=== PATIENT | female | born 2000 | race Two or more races ===

== ENCOUNTER 2022-09-28 23:37 | Inpatient (IN) ==
[2022-09-29] MEDS ORDERED: MAG SULFATE 4GM BOLUS FROM BAG IV ONE (00:11)
[2022-09-29] MEDS ORDERED: LIDOCAINE 1% LOCAL 20 ML VIAL INFIL PRN (00:11)
[2022-09-29] MEDS ORDERED: OXYTOCIN 30 UNITS/500 ML BAG IV PRN ×2 (00:11→00:58)
[2022-09-29] MEDS ORDERED: NIFEdipine 10 MG CAP PO STA (00:15)
[2022-09-29] MEDS ORDERED: NIFEdipine 10 MG CAP ONE (00:16)
--- NOTE | 2022-09-29 00:33 | History & Physical Report ---
Date of Service September 29, 2022 Assessment & Plan (1) Pre-eclampsia affecting childbirth: Plan: Initial blood pressures are elevated in the severe range and initial dose of nifedipine p.o. was given with some reasonable response Labs are drawn IV is started but in combination with her symptoms elevated blood pressure I think she likely will meet the criteria for preeclampsia with severe features. Worrisome with a headache of course but also elevated protein. She is just short of 36 weeks at 35 weeks and 5 days she has not had her group B strep drawn yet. We will await labs initiate magnesium sulfate and then will determine position as well with ultrasound which is found to be Vertex We addressed an issue to that the patient prefers female providers it is 1 AM at this time and I am on-call and a male provider I do not have a female provider available for her at this time. The patient understands this I will do everything I can to be respectful of her preferences she does understand that she has a serious problem preeclampsia with severe features and needs magnesium we also discussed betamethasone as well as she is 35 weeks and 6 days. I think this is reasonable as the induction may take some time and there may be some benefit of the steroid. I have asked nursing to check her cervix while this is not ideal this is the best option I have for her without me checking. Nursing is willing to do this. Preference would be to initiate oxytocin at this time if her cervix is closed she would benefit from a cervical Leger however she will not let me place this at this time. Did discuss benefits of this however again trying to be respectful of her cultural wishes. Nursing assessment is that it is likely closed although it is a difficult exam on review of her previous visits in the office it sounds like pelvic exams are challenging for the patient. I reviewed the process of preeclampsia with severe features the importance of controlling blood pressure the importance of magnesium to reduce the chance of seizures and also the importance of betamethasone penicillin be started on spec as we do not have a GBS status a GBS swab will be done but the results will not be likely available until after delivery History of Present Illness Primary Care Provider: [facility] JONI Calculator Estimated Delivery Date Method Current WG Current Estimate 10/28/22 LMP (Certain) 34w 2d Other Estimates 11/01/22 Ultrasound #1 33w 5d LMP: 01/21/22 : 1 Full term: 0 Premature: 0 Total Number of Induced Abortions: 0 Total Number of Spontaneous Abortions: 0 Ectopics: 0 Multiple births: 0 Number of Living Children: 0 and Delivery Plans Covid + 07/06/22, sx's began 07/05/22 Patient has not checked her blood pressure at home as she was worried it was elevated that she had some discomfort behind her up epigastric region. She also has a headache on the left side which seems to have gotten worse she has no visual changes the patient checked her blood pressure at home on the device and it was elevated contacted me and then came to the hospital at on my advice initial blood pressure readings were elevated and I did confirm the same symptoms her urine protein is elevated as well Allergies Allergy/AdvReac Type Severity Reaction Status Date / Time No Known Allergies Allergy Verified 09/18/22 15:02 Home Medications Medication Instructions Recorded Confirmed Type prenat.vits,reji,klt-ipnk-xcnee 1 tab PO DAILY 09/29/22 09/29/22 History Patient History Medical History (Updated 09/29/22 @ 08:54 by Shahla Ellison MD, FACOG) Cervical radicular pain Cervicalgia History of COVID-19 07/06/2022 Myofascial pain No significant past medical history Right hip pain Right shoulder pain Family History Mother Colorectal cancer, Onset Age: 33 Denies family history of Ovarian cancer Breast cancer Social History (Updated 09/12/22 @ 13:32 by Grace Magallon RN) Smoking Status: Never smoker Second Hand Exposure: No; Do You Dip or Chew Tobacco: No; Tobacco Cessation Education Requested by Patient: No Hx Alcohol Use: No Hx Substance Use: No Preferred Language: Yi Communication Ability: Effective Visual Impairment: No Limitations Blow Molder Required: No Beliefs That Will Affect Care: Evangelical Evangelical Beliefs: no male for per mulu care reasons marital status: marital status details: kassandra (24) [phone] Current Living Situation: Spouse current occupational status: student Other Information That Helps Us Care for You: No Feels Safe at Home: Yes Safety Concerns: Feels Safe At This Time Assistive Devices: Glasses Review of Systems as per Subjective / HPI Physical Exam Constitutional: WD/WN, vitals as above well developed and well nourished Respiratory: normal respiratory effort, lungs clear to auscultation normal respiratory effort Cardiovascular: RRR, no murmur, no edema Gastrointestinal (Abdomen): normal bowel sounds, soft, nontender, no hepatosplenomegaly Results & Data ([facility]) Vital Signs (Past 12 Hours) Vital Signs Pulse BP 09/29/22 00:16 93 H 172/101 H 09/29/22 00:11 89 174/104 H 09/29/22 00:06 85 173/105 H 09/29/22 00:00 86 176/107 H 09/28/22 23:47 80 176/101 H 09/28/22 23:45 86 191/111 H Coding Level of Care Code None Diagnoses Pre-eclampsia affecting childbirth O14.94
[2022-09-29] MEDS ORDERED: BETAMETH SOD PHOS/ACETATE IA 6 MG/ML IM STA (00:51)
[2022-09-29 00:52] LABS: Basophils # (auto) 0.03 K/uL (0-0.2); Basophils % (auto) 0.3 %; Eosinophils % (auto) 0.9 %; Hematocrit (blood only) 32.7 % (37.0-47.0); Immature Granulocytes # (auto) 0.05 K/uL (0.01-0.20); Immature Granulocytes % (auto) 0.5 %; Lymphocytes # (auto) 3.17 K/uL (1.2-3.4); Lymphocytes % (auto) 29.9 %; Mean Corpuscular Hemoglobin 29.8 pg (25.0-34.0); Mean Corpuscular Hgb Conc 33.6 g/dL (32.0-36.0); Mean Corpuscular Volume 88.6 fL (80.0-100.0); Monocytes # (auto) 0.95 K/uL (0.11-0.59); Neutrophils # (auto) 6.31 K/uL (1.40-6.50); Neutrophils % (auto) 59.4 %; Platelet Count 385 K/uL (130-400); RDW Coefficient of Variation 13.1 % (11.5-14.5); RDW Standard Deviation 42.2 fL (36.4-46.3); Red Blood Count 3.69 M/uL (4.20-5.40); White Blood Count 10.61 K/ul (4.8-10.8)
[2022-09-29] MEDS ORDERED: PENICILLIN G POTASSIUM 6 MU in DEXTROSE 5% 250 ML IV ONE (01:00)
[2022-09-29] MEDS: MAGNESIUM SULFATE / WTR 40 GM/1,000 ML BAG IV SCH ×2 (01:00→18:30)
[2022-09-29] MEDS: LACTATED RINGER'S 1,000 ML IV PRN ×2 (01:00→15:19)
[2022-09-29 01:03] LABS: Creatinine Clr Calc Pharmacy 174.6 ml/min; Est GFR (African American) 149.5 ml/min
[2022-09-29 01:49] LABS: Appearance Urine Clear (Clear); Bacteria Urine Automated Negative (Negative); Bilirubin Urine Negative (Negative); Blood Urine Trace (Negative); Color Urine Yellow; Epithelial Cell Urine Auto >30 /lpf (0-5); Glucose Urine UA Negative (Negative); Ketones Urine Negative (Negative); Leukocyte Esterase Urine Negative (Negative); Nitrite Urine Negative (Negative); Protein Urine 3+ (Negative); RBC Urine Automated 0-4 /hpf (0-4); Specific Gravity Urine 1.017 (1.000-1.030); Urobilinogen Urine Negative (Negative); pH Urine 6.5 (4.5-7.5)
[2022-09-29 02:30] LABS: Creatinine Urine Random 51.9 mg/dl
[2022-09-29 02:31] LABS: Total Protein Urine Random 217.8 mg/dl (0-11.9)
[2022-09-29 02:32] LABS: Protein Creatinine Ratio Urine 4.2 (0-0.2)
[2022-09-29] MEDS: PENICILLIN G POTASSIUM 3 MU in DEXTROSE 5% 100 ML IV PRN ×5 (05:45→22:40)
--- NOTE | 2022-09-29 08:55 | Labor Progress Brief Note ---
Date of Service September 29, 2022 Subjective pt feels ok, no brown or visual change. no concerns. explained procedure for alamo and desires to try. discussed use of epidural for labor pain/induction Assessment & Plan (1) Pre-eclampsia affecting childbirth: (2) Non-dilated cervix in term : Plan alamo placed to aid in cx ripening. pt did well. nst reactive. c/w pit. Admission and Anticipated Discharge Date Admission Date: September 29, 2022 Physical Exam Constitutional: WD/WN, vitals as above Genitourinary: Manual OB Exam: + cervical dilation (visually closed) and + cervical effacement (visually long) OB Exam Monitor Tracing: + external FHT monitor used, + external uterine monitor used (q3), + category I and + normal FHT variability PROCEDURE: sse cx visualized, grasped on ant lip with ring forcep, alamo through os and balloon inflated with 40cc sterile water. Spec removed, alamo taped to leg. pt gurpreet well. Results & Data ([facility]) Vital Signs (Past 12 Hours) Vital Signs Temp Pulse Resp BP 09/29/22 00:25 98.6 F 18 09/29/22 08:27 100 H 135/80 09/29/22 08:13 93 H 131/87 09/29/22 08:00 18 09/29/22 08:00 97.7 F 18 09/29/22 07:58 99 H 134/85 09/29/22 07:30 20 09/29/22 07:30 20 09/29/22 07:42 98 H 130/94 09/29/22 07:27 93 H 136/85 09/29/22 07:00 18 09/29/22 07:00 18 09/29/22 07:12 98 H 128/78 09/29/22 06:59 93 H 131/77 09/29/22 06:44 94 H 119/75 09/29/22 06:00 18 09/29/22 06:00 18 09/29/22 06:28 94 H 126/76 09/29/22 05:00 18 09/29/22 05:00 18 09/29/22 06:12 96 H 132/76 09/29/22 05:57 92 H 126/73 09/29/22 05:44 97 H 132/87 09/29/22 05:27 102 H 121/72 09/29/22 05:12 96 H 129/79 09/29/22 04:58 86 126/77 09/29/22 04:42 85 124/80 09/29/22 04:27 85 128/75 09/29/22 04:12 99 H 115/68 09/29/22 04:00 18 09/29/22 04:00 98.6 F 18 09/29/22 03:57 98 H 113/65 09/29/22 03:00 18 09/29/22 03:00 18 09/29/22 02:00 18 09/29/22 02:00 18 09/29/22 03:27 104 H 132/77 09/29/22 03:12 93 H 126/77 09/29/22 02:58 101 H 138/88 09/29/22 01:00 20 09/29/22 01:00 20 09/29/22 02:12 93 H 126/75 09/29/22 01:57 102 H 137/68 09/29/22 01:42 96 H 129/75 09/29/22 01:27 111 H 142/87 H 09/29/22 01:12 103 H 140/87 09/29/22 01:01 104 H 151/91 H 09/29/22 00:31 86 143/87 H 09/29/22 00:28 83 145/83 H 09/29/22 00:24 88 158/90 H 09/29/22 00:16 93 H 172/101 H 09/29/22 00:11 89 174/104 H 09/29/22 00:06 85 173/105 H 09/29/22 00:00 86 176/107 H 09/28/22 23:47 80 176/101 H 09/28/22 23:45 86 191/111 H Coding Level of Care Code None Diagnoses Pre-eclampsia affecting childbirth O14.94 Non-dilated cervix in term O34.40 CPT Codes Misx Procedure Codes - 21346 Placement of cervical dilator: 98197 Placement of cervical dilator ([id number]) PHYSICIAN LIAISON Miscellaneous Codes Misx Procedure Codes 82061 Placement of cervical dilator
[2022-09-29] MEDS ORDERED: ACETAMINOPHEN 325 MG TAB PO STA (09:30)
[2022-09-29 10:04] LABS: Basophils # (auto) 0.02 K/uL (0-0.2); Basophils % (auto) 0.2 %; Hematocrit (blood only) 37.3 % (37.0-47.0); Hemoglobin 12.9 g/dl (12.0-16.0); Immature Granulocytes # (auto) 0.11 K/uL (0.01-0.20); Immature Granulocytes % (auto) 0.9 %; Lymphocytes # (auto) 1.61 K/uL (1.2-3.4); Lymphocytes % (auto) 13.8 %; Mean Corpuscular Hemoglobin 29.7 pg (25.0-34.0); Mean Corpuscular Hgb Conc 34.6 g/dL (32.0-36.0); Mean Corpuscular Volume 85.9 fL (80.0-100.0); Monocytes # (auto) 0.18 K/uL (0.11-0.59); Monocytes % (auto) 1.5 %; Neutrophils # (auto) 9.71 K/uL (1.40-6.50); Neutrophils % (auto) 83.6 %; Platelet Count 466 K/uL (130-400); RDW Standard Deviation 40.6 fL (36.4-46.3); Red Blood Count 4.34 M/uL (4.20-5.40); White Blood Count 11.63 K/ul (4.8-10.8)
[2022-09-29 10:16] LABS: Alanine Aminotransferase 10 U/L (7-52); Albumin Globulin Ratio 1.1 (0.9-2); Albumin Level 3.6 gm/dl (3.4-5.0); Alkaline Phosphatase 134 U/L (34-104); Anion Gap 8 (3-11); Aspartate Aminotransferase 16 U/L (13-39); BUN Creatinine Ratio 18.9 (10-20); Bilirubin,Total 0.4 mg/dl (0.2-1.0); Blood Urea Nitrogen 10 mg/dl (6-23); Calcium 8.3 mg/dl (8.5-10.1); Carbon Dioxide 22 mmol/L (21-32); Chloride 103 mmol/L (98-107); Est GFR (African American) > 150.0 ml/min; Est GFR (Non-African American) 132.9 ml/min; Globulin 3.4 gm/dl (2.5-4.0); Glucose 129 mg/dl (70-99(Fasting)); Potassium 4.2 mmol/L (3.5-5.1); Sodium 133 mmol/L (136-145)
[2022-09-29 10:35] LABS: INR 0.9 (0.9-1.1); Partial Thromboplastin Ratio 0.9; Partial Thromboplastin Time 24.1 Seconds (21.0-31.0); Prothrombin Time 9.9 Seconds (9.0-12.0)
[2022-09-29] MEDS ORDERED: SODIUM CHLORIDE 0.9% INJ 10 ML VIAL ONE ×2 (12:50→22:50)
[2022-09-29] MEDS ORDERED: fentaNYL citrate 100 MCG/2 ML VIAL ONE ×2 (12:50→22:50)
[2022-09-29] MEDS ORDERED: ePHEDrine sulfate 50 MG/ML AMP ONE ×2 (12:50→22:50)
[2022-09-29] MEDS ORDERED: LIDOCAINE 2%/EPINEPHRINE 1:200,000 20 ML SDV ONE ×2 (12:51→22:50)
[2022-09-29] MEDS ORDERED: BUPIVACAINE 0.25% 30 ML VIAL ONE ×2 (12:51→22:50)
[2022-09-29] MEDS ORDERED: fentaNYL 2MCG/ML ROPIVACAINE 1.25MG/ML 100 ML BAG EPI ONE ×2 (12:51→22:51)
[2022-09-29] MEDS ORDERED: diphenhydrAMINE 50 MG/ML VIAL IV PRN (13:26)
[2022-09-29] MEDS ORDERED: NALOXONE HCL 1 MG in SODIUM CHLORIDE 0.9% 1000ML 1,000 ML IV PRN (13:26)
[2022-09-29] MEDS ORDERED: ONDANSETRON INJ 2 MG/ML 2 ML VIAL IV PRN (13:26)
[2022-09-29] MEDS ORDERED: NALBUPHINE HCL INJ 10 MG/ML AMP IV PRN (13:26)
[2022-09-29] MEDS ORDERED: NALOXONE HCL 0.4 MG/1 ML VIAL/CARP IV PRN (13:26)
[2022-09-29] MEDS ORDERED: ePHEDrine sulfate 50 MG/ML AMP IV PRN (13:26)
--- NOTE | 2022-09-29 13:26 | Anesthesiology Consultation ---
Date of Service September 29, 2022 Assessment & Plan ASA ASA2 Proposed Anesthesia Anesthesia Type: Labor Epidural Risk / Benefits Reviewed With: PT / POA / Parent / Guardian, Accepts Plan and Informed Consent Obtained History Height/Weight Height: 5 ft 5 in Weight: 99.337 kg Allergies Allergy/AdvReac Type Severity Reaction Status Date / Time No Known Allergies Allergy Verified 09/18/22 15:02 Medications Home Medications Medication Instructions Recorded Confirmed Last Taken prenat.vits,reji,coo-gkxz-arzwe 1 tab PO DAILY 09/29/22 09/29/22 09/28/22 08:00 Active Medications Generic Name Dose Route Start Last Admin Trade Name Freq PRN Reason Stop Dose Admin Lactated Ringer's 1,000 mls @ 125 mls/hr 09/29/22 00:11 09/29/22 01:00 Lr IV 10/01/22 00:10 75 mls/hr .Q8H PRN Administration L&D Protocol Protocol Magnesium Sulfate 40 gm in 1,000 mls @ 50 mls/hr 09/29/22 00:15 09/29/22 07:11 Magnesium Sulfate / Wtr IV 10/29/22 00:14 50 mls/hr .Q20H SUPRIYA Infusion Penicillin G Potassium 3 mu/ 106 mls @ 100 mls/hr 09/29/22 03:52 09/29/22 10:49 Dextrose IV 10/09/22 03:51 Infused Q4H PRN Infusion GBS(+) Until Delivery Oxytocin 30 units in 500 mls @ 11 mls/hr 09/29/22 00:58 09/29/22 12:00 Pitocin IV 10/01/22 00:57 0.66 units/hr .Q24H PRN 11 mls/hr Labor Induction/Augmentation Titration Protocol 0.66 UNITS/HR Past Medical History Medical History Cervical radicular pain Cervicalgia History of COVID-19 07/06/2022 Myofascial pain No significant past medical history Right hip pain Right shoulder pain Exercise / Class Metabolic Activity II 4-5 Yardwork/Stairs/Walk up hill Past Family History Family History Mother Colorectal cancer, Onset Age: 33 Denies family history of Ovarian cancer Breast cancer Past Anesthesia History No Hx of Anesthesia Complications and No Family Hx of Anesthesia Complications History of PONV No Hx of PONV and No Hx of Motion Sickness Social History Smoking Status: Never smoker Do You Dip or Chew Tobacco: No Hx Alcohol Use: No Hx Substance Use: No substance use type: does not use Review of Systems denies fever/cough/ colds/ chest pain/ SOB/ TACHO denies TACHO Physical Exam Vital Signs Last Vital Signs Temp 36.5 C 09/29/22 11:00 Pulse 109 H 09/29/22 13:53 Resp 20 09/29/22 13:00 BP 157/88 H 09/29/22 13:53 Pulse Ox 99 09/29/22 13:51 ENMT Mouth: no TMJ abnormality and no dentition abnormality Thyromental Distance: > or= 3.5 Finger Breadths Mallampati Class: II Neck neck extension not limited Respiratory normal respiratory effort; no respiratory distress Auscultation: lungs clear to auscultation bilaterally Cardiovascular Rate/Rhythm: regular rate and regular rhythm Neurologic moves all extremities Psychiatric Orientation: alert and oriented x 3 Testing Laboratory Results 09/29/22 09:40 09/29/22 09:40 PT 9.9 Seconds (9.0-12.0) 09/29/22 09:40 INR 0.9 (0.9-1.1) 09/29/22 09:40 APTT 24.1 Seconds (21.0-31.0) 09/29/22 09:40 Urine Color Yellow 09/29/22 01:37 Urine Appearance Clear (Clear) 09/29/22 01:37 Urine pH 6.5 (4.5-7.5) 09/29/22 01:37 Ur Specific Emmet 1.017 (1.000-1.030) 09/29/22 01:37 Urine Protein 3+ (Negative) H 09/29/22 01:37 Urine Glucose (UA) Negative (Negative) 09/29/22 01:37 Urine Ketones Negative (Negative) 09/29/22 01:37 Urine Nitrite Negative (Negative) 09/29/22 01:37 Ur Leukocyte Esterase Negative (Negative) 09/29/22 01:37 Urine WBC (Auto) 1-5 /hpf (0-5) 09/29/22 01:37 Urine RBC (Auto) 0-4 /hpf (0-4) 09/29/22 01:37 U Hyaline Cast (Auto) 1-5 /lpf (0-5) 09/29/22 01:37 U Epithel Cells (Auto) >30 /lpf (0-5) H 09/29/22 01:37 Urine Bacteria (Auto) Negative (Negative) 09/29/22 01:37 Blood Type B Positive 09/29/22 00:25 Antibody Screen NEGATIVE 09/29/22 00:25
--- NOTE | 2022-09-29 15:38 | Labor Progress Brief Note ---
Date of Service September 29, 2022 Subjective pt comfortable with epidural Assessment & Plan (1) Pre-eclampsia affecting childbirth: Plan patient alamo ripening balloon out, c/w pit, arom completed. fhts categ 1. pt aware that i am leaving, Dr. Escobar communications director and will be taking over care. no option for female provider and she accepts. Admission and Anticipated Discharge Date Admission Date: September 29, 2022 Physical Exam Constitutional: WD/WN, vitals as above Genitourinary: Manual OB Exam: + cervical dilation (3-4cm), + cervical effacement 50%, + station -2 and + amniotic fluid (AROM) clear OB Exam Monitor Tracing: + external FHT monitor used, + external uterine monitor used (q2-3), + category I and + normal FHT variability alamo balloon deflated and removed. Results & Data ([facility]) Vital Signs (Past 12 Hours) Vital Signs Temp Pulse Resp BP Pulse Ox 09/29/22 15:31 93 H 99 09/29/22 15:28 93 H 142/91 H 09/29/22 15:26 95 H 98 09/29/22 15:21 100 H 98 09/29/22 15:16 98 H 99 09/29/22 15:13 91 H 127/77 09/29/22 15:11 95 H 99 09/29/22 14:30 16 09/29/22 14:30 16 09/29/22 15:06 97 H 99 09/29/22 15:01 97 H 99 09/29/22 15:00 95 H 133/79 09/29/22 14:56 96 H 99 09/29/22 14:51 101 H 99 09/29/22 14:46 101 H 99 09/29/22 14:44 101 H 126/77 09/29/22 14:41 103 H 98 09/29/22 14:36 99 H 99 09/29/22 14:31 101 H 98 09/29/22 14:26 101 H 99 09/29/22 14:24 102 H 129/70 09/29/22 14:21 100 H 99 09/29/22 14:19 101 H 132/66 09/29/22 14:16 101 H 99 09/29/22 14:10 97.7 F 09/29/22 13:30 16 09/29/22 13:30 16 09/29/22 14:14 104 H 129/61 09/29/22 14:11 106 H 99 09/29/22 14:07 101 H 123/61 09/29/22 14:06 103 H 98 09/29/22 14:05 97 H 136/64 09/29/22 14:03 100 H 138/69 09/29/22 14:01 100 H 99 09/29/22 14:02 99 H 135/72 09/29/22 13:56 103 H 98 09/29/22 13:57 107 H 143/78 H 09/29/22 13:55 101 H 137/76 09/29/22 13:53 109 H 157/88 H 09/29/22 13:51 99 09/29/22 13:51 104 H 09/29/22 13:51 102 H 132/78 09/29/22 13:46 106 H 100 09/29/22 13:42 97 H 143/88 H 09/29/22 13:41 99 H 99 09/29/22 13:36 99 H 99 09/29/22 13:34 108 H 92 09/29/22 13:31 95 H 98 09/29/22 13:28 112 H 140/87 09/29/22 13:26 111 H 98 09/29/22 13:21 89 96 09/29/22 13:16 94 H 97 09/29/22 13:12 101 H 137/81 09/29/22 13:11 96 H 96 09/29/22 13:00 20 09/29/22 13:00 20 09/29/22 13:06 91 H 97 09/29/22 13:01 98 H 98 09/29/22 12:57 96 H 126/75 09/29/22 12:43 91 H 143/85 H 09/29/22 12:30 18 09/29/22 12:30 18 09/29/22 12:28 96 H 138/85 09/29/22 12:00 20 09/29/22 12:00 20 09/29/22 12:12 91 H 139/83 09/29/22 11:57 90 135/84 09/29/22 11:30 20 09/29/22 11:30 20 09/29/22 11:42 92 H 134/83 09/29/22 11:27 99 H 135/82 09/29/22 11:00 18 09/29/22 11:00 97.7 F 18 09/29/22 11:12 98 H 135/82 09/29/22 10:30 18 09/29/22 10:30 18 09/29/22 10:57 95 H 132/72 09/29/22 10:42 96 H 126/73 09/29/22 10:28 96 H 138/82 09/29/22 10:24 100 H 144/90 H 09/29/22 09:30 18 09/29/22 09:30 18 09/29/22 10:00 18 09/29/22 10:00 18 09/29/22 09:00 18 09/29/22 09:00 18 09/29/22 08:30 18 09/29/22 08:30 18 09/29/22 09:28 96 H 145/94 H 09/29/22 09:13 99 H 134/86 09/29/22 08:58 100 H 148/89 H 09/29/22 08:27 100 H 135/80 09/29/22 08:13 93 H 131/87 09/29/22 08:00 18 09/29/22 08:00 97.7 F 18 09/29/22 07:58 99 H 134/85 09/29/22 07:30 20 09/29/22 07:30 20 09/29/22 07:42 98 H 130/94 09/29/22 07:27 93 H 136/85 09/29/22 07:00 18 09/29/22 07:00 18 09/29/22 07:12 98 H 128/78 09/29/22 06:59 93 H 131/77 09/29/22 06:44 94 H 119/75 09/29/22 06:00 18 09/29/22 06:00 18 09/29/22 06:28 94 H 126/76 09/29/22 05:00 18 09/29/22 05:00 18 09/29/22 06:12 96 H 132/76 09/29/22 05:57 92 H 126/73 09/29/22 05:44 97 H 132/87 09/29/22 05:27 102 H 121/72 09/29/22 05:12 96 H 129/79 09/29/22 04:58 86 126/77 09/29/22 04:42 85 124/80 09/29/22 04:27 85 128/75 09/29/22 04:12 99 H 115/68 09/29/22 04:00 18 09/29/22 04:00 98.6 F 18 09/29/22 03:57 98 H 113/65 Coding Level of Care Code None Diagnoses Pre-eclampsia affecting childbirth O14.94
[2022-09-29] MEDS: fentaNYL 2MCG/ML ROPIVACAINE 1.25MG/ML 100 ML BAG EPI PRN (19:42)
[2022-09-29] MEDS ORDERED: NURSING L&D Epidural Breakthrough Pain Update ONE (21:29)
--- NOTE | 2022-09-29 23:29 | Communication Note ---
Date of Service: September 29, 2022 pt c/o lower abdominal and back pain. pt is on mag and is at 5cm. previous epidural removed with tip intact. I decided that the epidural should be replaced because the patient hasnt progressed very far. Sterile prep/drape/gloves. L3-l4 identified. 1% lido infiltrated. 18 gauge touey needle advanced to FRAN to air at 7 cm. easy catheter thread to 14 cm. 2% lido with epi 4cc test dose. Negative IV/IT. while taping the epidural pt became nauseous and c/o difficulty breathing and unable to move legs. VSS otherwise stable. after two minutes pt was able to breath again and was moving her legs with ease. Nursing reports that patient had similar incidences throughout the day/night. Pt not reporting any other symptoms. I bolused the patient with 3cc of 0.25% bupivicaine and 100 mcg of fentanyl. VSS and pt reports improvement in pain.
[2022-09-30] MEDS: LACTATED RINGER'S 1,000 ML IV PRN ×2 (00:30→11:26)
[2022-09-30] MEDS ORDERED: BETAMETH SOD PHOS/ACETATE IA 6 MG/ML IM ONE (01:15)
[2022-09-30] MEDS: fentaNYL 2MCG/ML ROPIVACAINE 1.25MG/ML 100 ML BAG EPI PRN (01:45)
[2022-09-30] MEDS ORDERED: ACETAMINOPHEN 325 MG TAB PO PRN (03:29)
[2022-09-30] MEDS ORDERED: DIPHTHERIA/TETANUS/PERTUSSIS 0.5mL SYR/VIAL (Age 7+yrs) IM ONE (03:29)
[2022-09-30] MEDS ORDERED: OXYTOCIN 30 UNITS/500 ML BAG IV PRN (03:29)
[2022-09-30] MEDS ORDERED: HYDROCORTISONE ACETATE 25 MG SUPP PR PRN (03:29)
[2022-09-30] MEDS ORDERED: BENZOCAINE 20% AER SPR 82.5 GM CAN EXT PRN (03:29)
[2022-09-30] MEDS: IBUPROFEN 600 MG TAB PO PRN (05:29)
--- NOTE | 2022-09-30 07:54 | Delivery Summary ---
DATE OF SERVICE: 09/30/2022 PROCEDURE: Normal spontaneous vaginal delivery with right labial laceration repair. SURGEON: Joshua Escobar MD. PREOPERATIVE DIAGNOSES: 1. Single intrauterine at 36 weeks, 0 days gestational age. 2. Preeclampsia with severe features. POSTOPERATIVE DIAGNOSES: 1. Single intrauterine at 36 weeks, 0 days gestational age. 2. Preeclampsia with severe features. 3. Status post procedure. ESTIMATED BLOOD LOSS: 300 mL. DRAINS: None. FLUIDS: Continuous lactated Ringer. URINE OUTPUT: Not measured. COMPLICATIONS: None. FINDINGS: Viable female with weight and Apgars pending. DESCRIPTION OF PROCEDURE: The patient progressed to 10 cm dilated, positive 2-3 station, pushed over intact perineum with epidural anesthesia, delivered a viable female infant with weight and Apgars as noted above. Head of the delivered in DYLAN position, restituted right transverse. No nuchal cord was noted. Body and shoulders quickly followed. was noted to be vigorous soon after d elivery and 1 minute delayed cord clamping was initiated. Cord was then double clamped and cut. Sy london remained on maternal abdomen. Cord blood was obtained. Attention was then turned to delivery o f the placenta, which was delivered intact, 3-vessel cord, gentle cord traction. On inspection of pe rineum, vagina, and the cervix, there was noted to be a right labial laceration, which was repaired w ith 3-0 Vicryl continuous running stitch. Needle, sponge, and instrument counts were correct at the completion of the case with mother and stable in the immediate post-delivery period. Job ID: [id number]
[2022-09-30] MEDS: PRENATAL VITAMIN 1 TAB PO SCH (08:01)
[2022-09-30] MEDS: FERROUS SULFATE 325 MG TAB PO SCH (08:01)
[2022-09-30] MEDS: DOCUSATE SODIUM 100 MG CAP PO SCH (08:01)
--- NOTE | 2022-09-30 10:16 | Anesthesia Procedure Note ---
Date of Service September 30, 2022 Anesthesia Post Epidural Note Vital Signs Vital Signs: Temp Pulse Resp BP Pulse Ox 36.7 C 95 H 18 141/84 H 99 09/30/22 07:15 09/30/22 10:09 09/30/22 09:15 09/30/22 09:31 09/30/22 10:09 Pain Intensity Abdomen: Pain Intensity: 6 Perineal: Pain Intensity: 2 Notes Mental Status: alert / awake / arousable Nausea / Vomiting: adequately controlled Pain: adequately controlled Airway Patency, RR, SpO2: stable & adequate BP & HR: stable & adequate Hydration State: stable & adequate Neuraxial Anesthesia: was administered and sensory block is resolving Anesthetic Complications: no major complications apparent and Pt Satisfied with anesthetic care Epidural: Removed without complications and With tip intact
[2022-09-30] MEDS: MAGNESIUM SULFATE / WTR 40 GM/1,000 ML BAG IV SCH (14:35)
[2022-10-01] MEDS: DOCUSATE SODIUM 100 MG CAP PO SCH ×3 (06:09→21:08)
[2022-10-01] MEDS: PRENATAL VITAMIN 1 TAB PO SCH (08:06)
[2022-10-01] MEDS: IBUPROFEN 600 MG TAB PO PRN (08:06)
[2022-10-01] MEDS: FERROUS SULFATE 325 MG TAB PO SCH (08:06)
[2022-10-01] MEDS ORDERED: LABETALOL HCL 100 MG TAB PO SCH (09:45)
--- NOTE | 2022-10-01 10:36 | Obstetrical Progress Note ---
Date of Service October 01, 2022 Assessment & Plan (1) examination following vaginal delivery: (2) Pre-eclampsia affecting childbirth: Plan stable routine care. some bps continue elevated. check labs. start labetalol. will await voiding but explained to pt poss intermittent catheterization. no sx or concern. breast, rhpos, ri. Subjective Ambulation: ambulating normally Voiding: voiding difficulty (no void since catheter removed at 5am per nurse) Passing Gas:: Yes Diet Tolerance:: regular diet Lochia:: Small Feeding Type:: breast feeding denies pain issues, no brown, visual change, epig or ruq pain. no worsening swelling. not voided yet since catheter came out Constitutional: + as per Subjective / HPI Physical Exam Constitutional WD/WN, vitals as above Respiratory normal respiratory effort, lungs clear to auscultation Cardiovascular Rate/Rhythm: regular rate and regular rhythm Gastrointestinal (Abdomen) Inspection/Auscultation: abdomen normal to inspection Percussion/Palpation: abdomen soft Fundus firm 2cm down Musculoskeletal nt calves tr pedal edema Neurologic grossly normal Psychiatric A+Ox3, euthymic affect Results & Data ([facility]) Vital Signs (Past 12 Hours) Vital Signs Temp Pulse Pulse Resp BP BP Pulse Ox 10/01/22 08:45 98.6 F 84 16 156/92 H 97 10/01/22 06:00 98.4 F 92 H 18 145/86 H 96 10/01/22 05:05 20 10/01/22 04:15 18 10/01/22 04:45 97.9 F 18 10/01/22 03:45 20 10/01/22 02:00 18 10/01/22 01:30 20 10/01/22 00:10 20 09/30/22 23:20 18 09/30/22 23:20 97.9 F 18 97 10/01/22 04:36 90 98 10/01/22 04:31 94 H 98 10/01/22 04:28 93 H 146/80 H 10/01/22 04:26 92 H 98 10/01/22 04:21 105 H 99 10/01/22 04:16 96 H 97 10/01/22 04:11 107 H 99 10/01/22 04:06 93 H 97 10/01/22 04:01 93 H 97 10/01/22 03:58 99 H 139/78 10/01/22 03:56 89 97 05 03:51 90 98 05 03:46 88 98 0305 03:41 98 H 98 10/01/22 03:36 97 H 98 03 03:31 96 H 98 10/01/22 03:28 97 H 141/81 H 10/01/22 03:26 92 H 98 10/01/22 03:21 96 H 98 05 03:16 90 98 0305 03:11 95 H 97 0305 03:06 97 H 98 10/01/22 03:01 92 H 98 10/01/22 02:58 98 H 138/78 05 02:56 96 H 98 10/01/22 02:51 97 H 98 10/01/22 02:46 96 H 98 10/01/22 02:41 93 H 97 10/01/22 02:36 97 H 98 10/01/22 02:31 95 H 98 10/01/22 02:28 92 H 136/83 05 02:26 95 H 98 05 02:21 94 H 98 05 02:16 98 H 97 05 02:11 96 H 98 05 02:06 94 H 97 10/01/22 02:01 101 H 97 05 01:58 95 H 131/82 05 01:56 100 H 97 05 01:51 99 H 97 05 01:46 101 H 97 05 01:41 99 H 97 05 01:36 103 H 97 05 01:31 100 H 97 05 01:28 109 H 135/75 05/ 01:26 92 H 96 05 01:21 91 H 97 05 01:16 91 H 97 05 01:11 88 97 05 01:06 89 97 05 01:01 90 97 05 00:58 98 H 129/78 05 00:56 84 97 05 00:51 87 98 10/01/22 00:46 95 H 98 10/01/22 00:41 94 H 98 10/01/22 00:36 91 H 97 10/01/22 00:31 97 H 98 10/01/22 00:28 92 H 135/84 10/01/22 00:26 95 H 97 10/01/22 00:21 96 H 97 10/01/22 00:16 105 H 97 10/01/22 00:11 105 H 96 10/01/22 00:06 108 H 97 10/01/22 00:01 102 H 97 09/30/22 23:58 97 H 131/83 09/30/22 23:56 92 H 97 09/30/22 23:51 99 H 98 09/30/22 23:45 91 H 97 09/30/22 23:40 94 H 98 09/30/22 23:35 91 H 98 09/30/22 23:30 98 H 98 09/30/22 23:25 104 H 98 09/30/22 23:20 91 H 97 09/30/22 23:15 91 H 97 09/30/22 23:10 92 H 96 09/30/22 23:05 93 H 97 09/30/22 23:00 93 H 97 09/30/22 22:58 88 122/69 09/30/22 22:55 93 H 97 09/30/22 22:50 90 97 09/30/22 22:45 93 H 97 09/30/22 22:40 92 H 97 09/30/22 22:35 91 H 97 O2 Del Method 10/01/22 08:45 Room Air 10/01/22 06:00 Room Air 10/01/22 05:05 10/01/22 04:15 10/01/22 04:45 Room Air 10/01/22 03:45 10/01/22 02:00 10/01/22 01:30 10/01/22 00:10 09/30/22 23:20 09/30/22 23:20 Room Air 10/01/22 04:36 10/01/22 04:31 10/01/22 04:28 10/01/22 04:26 10/01/22 04:21 10/01/22 04:16 10/01/22 04:11 10/01/22 04:06 10/01/22 04:01 10/01/22 03:58 10/01/22 03:56 10/01/22 03:51 10/01/22 03:46 10/01/22 03:41 10/01/22 03:36 10/01/22 03:31 10/01/22 03:28 10/01/22 03:26 10/01/22 03:21 10/01/22 03:16 10/01/22 03:11 10/01/22 03:06 10/01/22 03:01 10/01/22 02:58 10/01/22 02:56 10/01/22 02:51 10/01/22 02:46 10/01/22 02:41 10/01/22 02:36 10/01/22 02:31 10/01/22 02:28 10/01/22 02:26 10/01/22 02:21 10/01/22 02:16 10/01/22 02:11 10/01/22 02:06 10/01/22 02:01 10/01/22 01:58 10/01/22 01:56 10/01/22 01:51 10/01/22 01:46 10/01/22 01:41 10/01/22 01:36 10/01/22 01:31 10/01/22 01:28 10/01/22 01:26 10/01/22 01:21 10/01/22 01:16 10/01/22 01:11 10/01/22 01:06 10/01/22 01:01 10/01/22 00:58 10/01/22 00:56 10/01/22 00:51 10/01/22 00:46 10/01/22 00:41 10/01/22 00:36 10/01/22 00:31 10/01/22 00:28 10/01/22 00:26 10/01/22 00:21 10/01/22 00:16 10/01/22 00:11 10/01/22 00:06 10/01/22 00:01 09/30/22 23:58 09/30/22 23:56 09/30/22 23:51 09/30/22 23:45 09/30/22 23:40 09/30/22 23:35 09/30/22 23:30 09/30/22 23:25 09/30/22 23:20 09/30/22 23:15 09/30/22 23:10 09/30/22 23:05 09/30/22 23:00 09/30/22 22:58 09/30/22 22:55 09/30/22 22:50 09/30/22 22:45 09/30/22 22:40 09/30/22 22:35
[2022-10-01 11:14] LABS: Hematocrit (blood only) 29.7 % (37.0-47.0); Hemoglobin 9.9 g/dl (12.0-16.0); Mean Corpuscular Hemoglobin 29.7 pg (25.0-34.0); Mean Corpuscular Hgb Conc 33.3 g/dL (32.0-36.0); Mean Corpuscular Volume 89.2 fL (80.0-100.0); Platelet Count 451 K/uL (130-400); RDW Coefficient of Variation 13.6 % (11.5-14.5); RDW Standard Deviation 44.1 fL (36.4-46.3); Red Blood Count 3.33 M/uL (4.20-5.40); White Blood Count 15.51 K/ul (4.8-10.8)
[2022-10-01 11:30] LABS: Albumin Globulin Ratio 1.1 (0.9-2); Albumin Level 3.2 gm/dl (3.4-5.0); BUN Creatinine Ratio 19.2 (10-20); Bilirubin,Total 0.3 mg/dl (0.2-1.0); Calcium 8.1 mg/dl (8.5-10.1); Creatinine Clr Calc Pharmacy 138.7 ml/min; Est GFR (African American) 133.6 ml/min; Est GFR (Non-African American) 115.3 ml/min; Potassium 4.4 mmol/L (3.5-5.1); Total Protein 6.2 gm/dl (6.0-8.3)
[2022-10-01] MEDS ORDERED: bisacodyL 5 MG TABEC PO SCH (20:00)
[2022-10-01] MEDS ORDERED: LABETALOL HCL 200 MG TAB PO SCH (21:00)
[2022-10-02] MEDS ORDERED: bisacodyL 10 MG SUPP PR PRN (03:29)
--- NOTE | 2022-10-02 07:21 | Obstetrical Progress Note ---
Date of Service October 02, 2022 Assessment & Plan (1) examination following vaginal delivery: (2) Pre-eclampsia affecting childbirth: (3) Chest pain: Plan pt with acute chest pain but does not appear in any distress. i cannot reproduce pain. she denies congestion or sore throat, no reflux symptoms. does express fatigue. ? if breast full due to milk coming in and pt will try to pump to see if that improves. will need to see if sx cont. rec nurse call with any acute worsening. RN in room for evaluation. routine care otherwise, trying to adjust meds to control bp. Addendum: pt has pumped and feels that left chest pain is gone. had alot of production. bp noted and ? if her ear sx are due to elevated bp, will increase dose of labetalol to 300mg now. will consider tid dosing as well. pt agreeable. Day #:: 2 Subjective Ambulation: ambulating normally Voiding: no voiding problems Diet Tolerance:: regular diet Lochia:: Small Feeding Type:: breast feeding CTSP at 638am due to pt c/o chest pain and sob. I arrived in room and pt sitting up and smiling. She notes around 5am started feeling sob with even small ambulation to br and pressure in her ears. she feels fatigue and like she might pass out. she is arousable easily, ie. has not had any syncope. Again sitting upright and not complaining of sob right now. She notes her chest pain is under her left breast. She is pumping and due to pump soon. Constitutional: + as per Subjective / HPI (denies brown, visual change. no ruq pain. no worsening swelling. ) Physical Exam Constitutional WD/WN, vitals as above Respiratory normal respiratory effort, lungs clear to auscultation Cardiovascular Rate/Rhythm: regular rate and regular rhythm Chest (Breasts) Additional Comments: not able to reproduce pain with pressure on rib under breast which is where she points to area of chest pain. Gastrointestinal (Abdomen) Inspection/Auscultation: abdomen normal to inspection Percussion/Palpation: abdomen soft; abdomen nontender Fundus firm 2cm down Musculoskeletal nt calves no edema Neurologic grossly normal Psychiatric A+Ox3, euthymic affect Results & Data ([facility]) Vital Signs (Past 12 Hours) Vital Signs Temp Pulse Resp BP O2 Del Method 10/02/22 06:00 150/98 H 10/02/22 04:05 98.6 F 93 H 18 156/103 H Room Air 10/01/22 23:35 98.6 F 101 H 16 127/73 Room Air 10/01/22 21:28 152/96 H 10/01/22 19:54 98.4 F 96 H 18 154/91 H Room Air
[2022-10-02] MEDS ORDERED: LABETALOL HCL 300 MG TAB PO SCH (07:45)
[2022-10-02] MEDS: LABETALOL HCL 300 MG TAB PO SCH ×2 (08:36→14:09)
[2022-10-02] MEDS: FERROUS SULFATE 325 MG TAB PO SCH (08:36)
[2022-10-02] MEDS: PRENATAL VITAMIN 1 TAB PO SCH (08:36)
[2022-10-02] MEDS: DOCUSATE SODIUM 100 MG CAP PO SCH ×2 (08:36→21:01)
[2022-10-02] MEDS ORDERED: NIFEdipine 10 MG CAP ONE (17:44)
[2022-10-02] MEDS ORDERED: NIFEdipine 10 MG CAP PO STA (17:44)
--- NOTE | 2022-10-02 18:16 | Communication Note ---
Date of Service: October 02, 2022 called to evaluate patient for SOB and LUQ pain. this happened this morning as well. patient was sitting up in bed and became dizzy thenSOB which is now imp roved. LUQ pain not worse with deep breath. she was having some chest pressure but it has also improved. BP has been difficult to control on po labetalol. currently on 300mg tid - last dose was 1400. BP now 160/110. it had been 150-160/90-100 range despite labetalol at 300mg tid on exam: lungs clear to auscultation heart - RRR tender along left costal margin when palpating over the rib. 1+ pedal edema noted labetalol not effective - will give 20mg po nifedipine now and continue with 30mg Nifedipine ER to start tonight at 2100.
[2022-10-02] MEDS ORDERED: NIFEdipine EXTENDED REL 30 MG TABCR PO SCH (19:15)
--- NOTE | 2022-10-03 06:22 | Obstetrical Progress Note ---
Date of Service <Mey Escobar MD - Last Filed: 10/03/22 07:28> October 03, 2022 Assessment & Plan <Mey Escobar MD - Last Filed: 10/03/22 07:28> (1) Pre-eclampsia affecting childbirth: 22 y/o female now PPD3 after vaginal delivery. GBS neg, RI, Rh pos. Satisfactory post progress. Encourage ambulation. c/b severe preeclampsia - asymptomatic. Now on nifedipine. Will continue to monitor BPs. F/u in office in 1 week for BP check. (2) examination following vaginal delivery: <Vikki Wiley MD, FACOG - Last Filed: 10/03/22 07:33> (1) Pre-eclampsia affecting childbirth: (2) examination following vaginal delivery: Subjective <Mey Escobar MD - Last Filed: 10/03/22 07:28> Ambulation: ambulating normally Voiding: no voiding problems Passing Gas:: Yes Diet Tolerance:: regular diet Lochia:: Small no headaches, vision changes, RUQ pain, CP, SOB Physical Exam <Mey Escobar MD - Last Filed: 10/03/22 07:28> Gen: well appearing female in NAD HEENT: AT NC Resp: no increased work of breathing CV: clinically well perfused : uterus firm non-tender at the level of the umbilicus Psych: appropriate mood and affect Neuro: alert and oriented Results & Data ([facility]) <Mey Escobar MD - Last Filed: 10/03/22 07:28> Vital Signs (Past 12 Hours) Vital Signs Temp Pulse Resp BP Pulse Ox O2 Del Method 10/03/22 03:20 36.9 C 94 H 20 143/88 H 97 Room Air 10/02/22 23:30 37.0 C 89 18 141/93 H 97 Room Air 10/02/22 22:00 108 H 133/86 94 Room Air 10/02/22 21:00 106 H 152/90 H 97 Room Air 10/02/22 20:00 36.8 C 104 H 20 151/97 H 96 Room Air 10/02/22 19:00 95 H 142/88 H 98 Room Air 10/02/22 18:45 96 H 137/88 98 Room Air 10/02/22 18:30 99 H 159/99 H 96 Room Air Laboratory Results 10/01/22 11:02 10/01/22 11:02 <Vikki Wiley MD, FACOG - Last Filed: 10/03/22 07:33> Co-Signing Physician Notes Resident Physician Supervision Note: I interviewed and examined the patient. Discussed with Dr. Escobar and agree with findings and plan as documented in the note. Any exceptions or clarifications are listed here: [None] Documented By: Vikki Wiley MD, FACOG Resident Activity Tracking <Mey Escobar MD - Last Filed: 10/03/22 07:28> Resident Involvement: Resident Care Provided Care Provided: OB Delivery
--- NOTE | 2022-10-03 08:56 | Electrocardiogram Report ---
Test Reason : Blood Pressure : / mmHG Vent. Rate : 101 BPM Atrial Rate : 101 BPM P-R Int : 166 ms QRS Dur : 076 ms QT Int : 336 ms P-R-T Axes : 061 056 044 degrees QTc Int : 435 ms Sinus tachycardia Diffuse Minor Nonspecific T wave abnormality Abnormal ECG No previous ECGs available Confirmed by Rayo Murphy ([id number]) on 10/03/2022 8:55:50 AM Referred By: Dulce Cantu Confirmed By:Rayo Murphy
[2022-10-03] MEDS: FERROUS SULFATE 325 MG TAB PO SCH (09:17)
[2022-10-03] MEDS: DOCUSATE SODIUM 100 MG CAP PO SCH (09:17)
[2022-10-03] MEDS: PRENATAL VITAMIN 1 TAB PO SCH (09:17)
[2022-10-03] MEDS ORDERED: NIFEdipine EXTENDED REL 30 MG TABCR PO SCH ×2 (21:00)
== END 2022-10-03 12:40 | disposition home or self-care (01) | DRG 807 ==
LOC: OPB 23:37 → 4S1 23:39 → 4E2 10-01 05:26

== ENCOUNTER 2022-10-04 18:45 | Inpatient (IN) ==
[2022-10-04] MEDS ORDERED: LABETALOL HCL IV 5 MG/ML 20ML IV STA ×3 (19:04→21:23)
--- NOTE | 2022-10-04 19:07 | Emergency Department Note ---
Impression & Plan Pre-eclampsia, Headache, Hypertension, Failure of outpatient treatment, Hypomagnesemia ED Provider Note NAME: DEBBIE MACKEY AGE: 22 SEX: F : 2000 ARRIVES VIA: Walk-In INFORMANT: Patient[family] ED PROVIDER(S): [Edward Dorman MD] CHIEF COMPLAINT: High blood pressure, DrAsa Referred HISTORY OF PRESENT ILLNESS: The patient is a 22-year-old female who states that for the last 4 days, she has noticed some symptoms. She has had a mild headache, she has felt her heartbeat strongly in her neck. She has felt her heartbeat in her abdomen. She feels off balance. At times, she has a harder time finding her words. She noticed her blood pressure was high. She was preeclamptic with her recent delivery, she actually was discharged from the hospital on nifedipine just yesterday. The patient feels worse today, she presents for evaluation. PMHx/PSHx: See Below SOCIAL HISTORY: See Below. PHYSICAL EXAM: GENERAL: Patient is in no acute distress. HEENT: No acute trauma, normocephalic atraumatic, mucous membranes moist, no nasal congestion. NECK: No stridor, no adenopathy, no meningismus, trachea is midline. LUNGS: Clear to auscultation bilaterally, no wheeze, no rhonchi, breath sounds equal. HEART: Without murmurs gallops or rubs, regular rate and rhythm. ABDOMEN: Soft, nontender, bowel sounds positive, no peritonitis. EXTREMITIES: No cyanosis or edema, full range of motion of all the joints without pain or difficulty, no signs for acute trauma. NEUROLOGIC: Oriented x 3, no acute motor or sensory deficits, no focal weakness. Her gait seems somewhat unsteady. No cerebellar deficits or extremity drift. No speech slur or facial droop. At times, she seems to have a harder time fi nding words. SKIN: No rash, no jaundice, no diaphoresis. DIFFERENTIAL DIAGNOSIS: Preeclampsia, uncontrolled hypertension, stroke, electrolyte imbalance, renal failure, infection, among others. EMERGENCY DEPARTMENT COURSE/PROCEDURES: Prior/Outside records reviewed: Recent OB notes. ECG per my interpretation: Indication was possible stroke and hypertension. The ECG shows a normal sinus rhythm with a rate of 86. There is no ST elevation, no PVCs. The QTc is 404. Continuous Cardiac Monitoring per my interpretation: An order was placed for continuous cardiac monitoring. The monitor shows a rate of 89 with normal sinus rhythm. MEDICAL DECISION MAKING: There is a slight leukocytosis, this certainly could be consistent with infection or the stress of her presentation. Of note, the white count has improved compared to the last recorded value. A very mild anemia was seen. The platelet count was slightly high at 492. No coagulopathy. No renal failure. Magnesium was low at 1.6. No concerning liver enzyme elevation. ECG showed a normal sinus rhythm, no ischemia. Cardiac enzyme testing x1 was not consistent with acute cardiac injury. COVID test is pending. Brain CT showed no acute bleed or mass effect. CT angio of the head and neck did not show any dissection or stenosis. On exam, the patient at times seemed to have a harder time finding her words. No speech slur or facial droop. There was no extremity drift or cerebellar dysfunction. She seemed to be a little bit unsteady with her gait. I did not call a stroke alert. Patient was not a candidate for tPA as she has had symptoms almost all day, she just delivered a baby 3 days ago. She is on nifedipine as an outpatient. The patient was hypertensive. She received IV labetalol. She received 10 mg initially and then 2 additional 10 mg of IV labetalol. She was given IV mag nesium, 2 g. The patient is currently resting comfortably. Her blood pressure is somewhat improved. I did speak with Dr. Escobar of [facility]. The patient is going to be hospitalized. She has failed outpatient treatment. In short, I believe her preeclampsia is causing her presentation. Hospitaliza tion is warranted. I did speak with case management, the patient is aware of all her findings. DISPOSITION: Patient's presentation and findings warrant a hospital stay. Past Med/Surg History Medical History Cervical radicular pain Cervicalgia History of COVID-19 07/06/2022 Myofascial pain No significant past medical history Right hip pain Right shoulder pain Family History Mother Colorectal cancer, Onset Age: 33 Denies family history of Ovarian cancer Breast cancer Social History Smoking Status: Never smoker Second Hand Exposure: No; Hx Alcohol Use: No Hx Substance Use: No Preferred Language: Upper Sorbian Communication Ability: Effective Visual Impairment: No Limitations Airline Lounge Receptionist Required: No Beliefs That Will Affect Care: Jew Jew Beliefs: no male for personal care reasons marital status: marital status details: kassandra (24) [phone] Current Living Situation: Spouse current occupational status: student Feels Safe at Home: Yes Assistive Devices: Glasses Allergies Allergies Allergy/AdvReac Type Severity Reaction Status Date / Time No Known Allergies Allergy Verified 10/04/22 19:41 Home Meds Home Medications Medication Instructions Recorded Confirmed prenat.vits,reji,[id number] 1 tab PO DAILY 09/29/22 10/04/22 nifedipine 30 mg tablet,extended 30 mg PO HS 10/04/22 10/04/22 release 24 hr (Procardia XL) Previous Rx's Medication Instructions Recorded breast pump #1 ea 10/02/22 Results & Data (ED) Vital Signs Vital Signs - 24 hr 10/04/22 18:49 10/04/22 19:20 10/04/22 19:25 Temperature 36.7 C Temperature Source Temporal Artery Scan Pulse Rate 91 H 86 Pulse Rate [Apical] 92 H Respiratory Rate 20 21 Respiratory Effort / Characteristics Non-Labored Spontaneous Non-Labored Spontaneous Respiratory Depth Normal Normal Respiratory Pattern Regular Blood Pressure 187/106 H Blood Pressure [Left Arm] 161/107 H Blood Pressure Mean 133 Blood Pressure Mean [Left Arm] 125 Pulse Oximetry 99 96 Oxygen Delivery Method Room Air Room Air Sepsis Recent Fever Within 48 Hours No Sepsis New/Unexplained Change in Mental Status No Sepsis Action Taken by Nursing No Action Required Home Medications Current Medication List: was personally reviewed by me Laboratory Data Attestation: I reviewed the patient's lab results. 10/04/22 19:23 10/04/22 19:23 Lab Results 10/04/22 10/04/22 10/04/22 Range/Units 19:23 19:23 19:23 WBC 11.79 H (4.8-10.8) K/ul RBC 3.92 L (4.20-5.40) M/uL Hgb 11.5 L (12.0-16.0) g/dl Hct 35.1 L (37.0-47.0) % MCV 89.5 (80.0-100.0) fL MCH 29.3 (25.0-34.0) pg MCHC 32.8 (32.0-36.0) g/dL RDW Std Deviation 42.7 (36.4-46.3) fL RDW Coeff of Jasmyne 13.2 (11.5-14.5) % Plt Count 492 H (130-400) K/uL MPV 8.5 L (9.4-12.4) fL Immature Gran % (Auto) 0.5 % Neut % (Auto) 72.1 % Lymph % (Auto) 20.3 % Walsh % (Auto) 5.2 % Eos % (Auto) 1.5 % Baso % (Auto) 0.4 % Neut # (Auto) 8.50 H (1.40-6.50) K/uL Lymph # (Auto) 2.39 (1.2-3.4) K/uL Walsh # (Auto) 0.61 H (0.11-0.59) K/uL Eos # (Auto) 0.18 (0-0.50) K/uL Baso # (Auto) 0.05 (0-0.2) K/uL Immature Gran # (Auto) 0.06 (0.01-0.20) K/uL PT 11.3 (9.0-12.0) Seconds INR 1.1 (0.9-1.1) APTT 22.5 (21.0-31.0) Seconds PTT Ratio 0.8 Sodium 135 L (136-145) mmol/L Potassium 4.0 (3.5-5.1) mmol/L Chloride 102 (98-107) mmol/L Carbon Dioxide 25 (21-32) mmol/L Anion Gap 8 (3-11) BUN 15 (6-23) mg/dl Creatinine 0.60 (0.6-1.2) mg/dl Est Cr Clr Drug Dosing 164.2 ml/min Est GFR ( Amer) 147.9 ml/min Est GFR (Non-Af Amer) 127.6 ml/min BUN/Creatinine Ratio 25.0 H (10-20) Glucose 71 (70-99(Fasting)) mg/dl Calcium 10.4 H (8.5-10.1) mg/dl Magnesium 1.6 L (1.7-2.4) mg/dl Total Bilirubin 0.6 (0.2-1.0) mg/dl AST 22 (13-39) U/L ALT 16 (7-52) U/L Alkaline Phosphatase 125 H (34-104) U/L Troponin I High Sens 10.9 (0-14) pg/ml Total Protein 7.4 (6.0-8.3) gm/dl Albumin 3.9 (3.4-5.0) gm/dl Globulin 3.5 (2.5-4.0) gm/dl Albumin/Globulin Ratio 1.1 (0.9-2) Administered Medications Magnesium Sulfate/Dextrose (Magnesium Sulfate / D5w) 1 gm in 100 mls @ 100 mls/hr IV Q1H SUPRIYA Stop: 10/04/22 22:22 Last Admin: 10/04/22 21:36 Dose: 100 mls/hr Documented By: Infusion: 10/04/22 21:29 Dose: 100 mls/hr Documented By: artist model: 10/04/22 20:29 Dose: 100 mls/hr Documented By: MED Discontinued Medications Ioversol (Optiray 320 500ml) 116 ml IV ONCE ONE Stop: 10/04/22 20:08 Last Admin: 10/04/22 20:07 Dose: 116 ml Documented By: MAXIM Labetalol HCl (Labetalol Hcl Iv 5 Mg/Ml 20ml) 10 mg IV NOW STA Stop: 10/04/22 19:05 Last Admin: 10/04/22 19:38 Dose: 10 mg Documented By: MED Co-signed By: YASMANI Labetalol HCl (Labetalol Hcl Iv 5 Mg/Ml 20ml) 10 mg IV NOW STA Stop: 10/04/22 20:27 Last Admin: 10/04/22 20:35 Dose: 10 mg Documented By: MED Co-signed By: Imaging Data Radiologist's Impression: Head CT 10/04/22 19:04 Exam(s): CT HEAD Without Contrast EXAM: CT Head Without Intravenous Contrast CLINICAL HISTORY: Reason for exam: neuro deficit, acute stroke suspected. TECHNIQUE: Axial computed tomography images of the head/brain without intravenous contrast. CTDI is 38.21 mGy and DLP is 537.48 mGy-cm. Automated exposure control was utilized for the study. A dose lowering technique was utilized adhering to the principles of ALARA. COMPARISON: No relevant prior studies available. FINDINGS: Brain: Unremarkable. No hemorrhage. No significant white matter disease. No edema. Ventricles: Unremarkable. No ventriculomegaly. Bones/joints: Unremarkable. No acute fracture. Soft tissues: Unremarkable. Sinuses: Unremarkable as visualized. No acute sinusitis. Mastoid air cells: Unremarkable as visualized. No mastoid effusion. IMPRESSION: Normal head/brain CT. Electronically signed by: Bartolome Goldstein MD 10/04/22 20:34 PM Head CTA 10/04/22 19:04 Exam(s): CTA HEAD With Contrast EXAM: CT Angiography Head With Intravenous Contrast CLINICAL HISTORY: Reason for exam: neuro deficit, acute stroke suspected. TECHNIQUE: Axial computed tomographic angiography images of the head with intravenous contrast. CTDI is 13.81 mGy and DLP is 547.82 mGy-cm. Automated exposure control was utilized for the study. A dose lowering technique was utilized adhering to the principles of ALARA. MIP reconstructed images were created and reviewed. CONTRAST: Contrast must be dictated COMPARISON: No relevant prior studies available. FINDINGS: Right internal carotid artery: No acute findings. Intracranial segment is patent with no significant stenosis. No aneurysm. Right anterior cerebral artery: Unremarkable. No occlusion or significant stenosis. No aneurysm. Right middle cerebral artery: Unremarkable. No occlusion or significant stenosis. No aneurysm. Right posterior cerebral artery: Unremarkable. No occlusion or significant stenosis. No aneurysm. Left internal carotid artery: No acute findings. Intracranial segment is patent with no significant stenosis. No aneurysm. Left anterior cerebral artery: Unremarkable. No occlusion or significant stenosis. No aneurysm. Left middle cerebral artery: Unremarkable. No occlusion or significant stenosis. No aneurysm. Left posterior cerebral artery: Unremarkable. No occlusion or significant stenosis. No aneurysm. IMPRESSION: No large vessel occlusion. Electronically signed by: Bartolome Goldstein MD 10/04/22 20:45 PM Neck CTA 10/04/22 19:04 Exam(s): CTA NECK With Contrast EXAM: CT Angiography Neck With Intravenous Contrast CLINICAL HISTORY: Reason for exam: neuro deficit, acute stroke suspected. TECHNIQUE: Routine carotid CT angiography protocol was performed with intravenous contrast. NASCET criteria using the distal ICAs for comparison were used for evaluation of stenoses. CTDI is 13.81 mGy and DLP is 547.82 mGy-cm. Automated exposure control was utilized for the study. A dose lowering technique was utilized adhering to the principles of ALARA. MIP reconstructed images were created and reviewed. CONTRAST: Contrast must be dictated COMPARISON: None. FINDINGS: VASCULATURE: Right common carotid artery: Unremarkable. No occlusion or significant stenosis. No dissection. Right internal carotid artery: Unremarkable. Extracranial segment is patent with no occlusion or significant stenosis. No dissection. Right external carotid artery: Unremarkable. No occlusion. Right vertebral artery: Unremarkable. No occlusion or significant stenosis. No dissection. Left common carotid artery: Unremarkable. No occlusion or significant stenosis. No dissection. Left internal carotid artery: Unremarkable. Extracranial segment is patent with no occlusion or significant stenosis. No dissection. Left external carotid artery: Unremarkable. No occlusion. Left vertebral artery: Unremarkable. No occlusion or significant stenosis. No dissection. IMPRESSION: No large vessel occlusion. Electronically signed by: Bartolome Goldstein MD 10/04/22 20:46 PM Discharge Plan Visit Data Chief Complaint: Referred by Doctor Stated Complaint: HBP,ABDOMINAL AND BACK PAIN ED Provider: Edward Dorman Discharge Problem: Pre-eclampsia, Headache, Hypertension, Failure of outpatient treatment, Hypomagnesemia Patient Disposition: Admitted As Inpatient Condition: Fair Forms Stand Alone Forms: [facility] Prescriptions Prescriptions: No Action nifedipine [Procardia XL] 30 mg tablet extended release 24hr 30 mg PO HS Rx Instructions: Take one po at 9 pm each night prenat.vits,reji,[id number] Tablet 1 tab PO DAILY (DME) breast pump Device See Rx Instructions .ROUTE .MEDSUPPLY Qty: 1 0RF Rx Instructions: As directed Referrals Referrals: [place] [Primary Care Provider] -
[2022-10-04 19:51] LABS: Basophils # (auto) 0.05 K/uL (0-0.2); Basophils % (auto) 0.4 %; Eosinophils # (auto) 0.18 K/uL (0-0.50); Eosinophils % (auto) 1.5 %; Hematocrit (blood only) 35.1 % (37.0-47.0); Hemoglobin 11.5 g/dl (12.0-16.0); Immature Granulocytes # (auto) 0.06 K/uL (0.01-0.20); Immature Granulocytes % (auto) 0.5 %; Lymphocytes # (auto) 2.39 K/uL (1.2-3.4); Lymphocytes % (auto) 20.3 %; Mean Corpuscular Hemoglobin 29.3 pg (25.0-34.0); Mean Corpuscular Hgb Conc 32.8 g/dL (32.0-36.0); Mean Corpuscular Volume 89.5 fL (80.0-100.0); Mean Platelet Volume 8.5 fL (9.4-12.4); Monocytes # (auto) 0.61 K/uL (0.11-0.59); Monocytes % (auto) 5.2 %; Neutrophils % (auto) 72.1 %; Platelet Count 492 K/uL (130-400); RDW Coefficient of Variation 13.2 % (11.5-14.5); RDW Standard Deviation 42.7 fL (36.4-46.3); Red Blood Count 3.92 M/uL (4.20-5.40); White Blood Count 11.79 K/ul (4.8-10.8)
[2022-10-04 20:03] LABS: Albumin Globulin Ratio 1.1 (0.9-2); Albumin Level 3.9 gm/dl (3.4-5.0); Bilirubin,Total 0.6 mg/dl (0.2-1.0); Calcium 10.4 mg/dl (8.5-10.1); Creatinine Clr Calc Pharmacy 164.2 ml/min; Est GFR (African American) 147.9 ml/min; Est GFR (Non-African American) 127.6 ml/min; Globulin 3.5 gm/dl (2.5-4.0); Magnesium 1.6 mg/dl (1.7-2.4); Total Protein 7.4 gm/dl (6.0-8.3)
[2022-10-04] MEDS ORDERED: OPTIRAY 320 500ml IV ONE (20:07)
[2022-10-04 20:10] LABS: Troponin I High Sensitivity 10.9 pg/ml (0-14)
[2022-10-04 20:26] LABS: INR 1.1 (0.9-1.1); Partial Thromboplastin Ratio 0.8; Partial Thromboplastin Time 22.5 Seconds (21.0-31.0); Prothrombin Time 11.3 Seconds (9.0-12.0)
[2022-10-04] MEDS: MAGNESIUM SULFATE / D5W 1 GM/100 ML BAG IV SCH ×2 (20:29→21:36)
--- NOTE | 2022-10-04 20:35 | CT Scan Report ---
Exam(s): CT HEAD Without Contrast EXAM: CT Head Without Intravenous Contrast CLINICAL HISTORY: Reason for exam: neuro deficit, acute stroke suspected. TECHNIQUE: Axial computed tomography images of the head/brain without intravenous contrast. CTDI is 38.21 mGy and DLP is 537.48 mGy-cm. Automated exposure control was utilized for the study. A dose lowering technique was utilized adhering to the principles of ALARA. COMPARISON: No relevant prior studies available. FINDINGS: Brain: Unremarkable. No hemorrhage. No significant white matter disease. No edema. Ventricles: Unremarkable. No ventriculomegaly. Bones/joints: Unremarkable. No acute fracture. Soft tissues: Unremarkable. Sinuses: Unremarkable as visualized. No acute sinusitis. Mastoid air cells: Unremarkable as visualized. No mastoid effusion. IMPRESSION: Normal head/brain CT. Electronically signed by: Bartolome Goldstein MD 10/04/22 20:34 PM
--- NOTE | 2022-10-04 20:46 | CT Scan Report ---
Exam(s): CTA HEAD With Contrast EXAM: CT Angiography Head With Intravenous Contrast CLINICAL HISTORY: Reason for exam: neuro deficit, acute stroke suspected. TECHNIQUE: Axial computed tomographic angiography images of the head with intravenous contrast. CTDI is 13.81 mGy and DLP is 547.82 mGy-cm. Automated exposure control was utilized for the study. A dose lowering technique was utilized adhering to the principles of ALARA. MIP reconstructed images were created and reviewed. CONTRAST: Contrast must be dictated COMPARISON: No relevant prior studies available. FINDINGS: Right internal carotid artery: No acute findings. Intracranial segment is patent with no significant stenosis. No aneurysm. Right anterior cerebral artery: Unremarkable. No occlusion or significant stenosis. No aneurysm. Right middle cerebral artery: Unremarkable. No occlusion or significant stenosis. No aneurysm. Right posterior cerebral artery: Unremarkable. No occlusion or significant stenosis. No aneurysm. Left internal carotid artery: No acute findings. Intracranial segment is patent with no significant stenosis. No aneurysm. Left anterior cerebral artery: Unremarkable. No occlusion or significant stenosis. No aneurysm. Left middle cerebral artery: Unremarkable. No occlusion or significant stenosis. No aneurysm. Left posterior cerebral artery: Unremarkable. No occlusion or significant stenosis. No aneurysm. IMPRESSION: No large vessel occlusion. Electronically signed by: Bartolome Goldstein MD 10/04/22 20:45 PM
--- NOTE | 2022-10-04 20:46 | CT Scan Report ---
Exam(s): CTA NECK With Contrast EXAM: CT Angiography Neck With Intravenous Contrast CLINICAL HISTORY: Reason for exam: neuro deficit, acute stroke suspected. TECHNIQUE: Routine carotid CT angiography protocol was performed with intravenous contrast. NASCET criteria using the distal ICAs for comparison were used for evaluation of stenoses. CTDI is 13.81 mGy and DLP is 547.82 mGy-cm. Automated exposure control was utilized for the study. A dose lowering technique was utilized adhering to the principles of ALARA. MIP reconstructed images were created and reviewed. CONTRAST: Contrast must be dictated COMPARISON: None. FINDINGS: VASCULATURE: Right common carotid artery: Unremarkable. No occlusion or significant stenosis. No dissection. Right internal carotid artery: Unremarkable. Extracranial segment is patent with no occlusion or significant stenosis. No dissection. Right external carotid artery: Unremarkable. No occlusion. Right vertebral artery: Unremarkable. No occlusion or significant stenosis. No dissection. Left common carotid artery: Unremarkable. No occlusion or significant stenosis. No dissection. Left internal carotid artery: Unremarkable. Extracranial segment is patent with no occlusion or significant stenosis. No dissection. Left external carotid artery: Unremarkable. No occlusion. Left vertebral artery: Unremarkable. No occlusion or significant stenosis. No dissection. IMPRESSION: No large vessel occlusion. Electronically signed by: Bartolome Goldstein MD 10/04/22 20:46 PM
[2022-10-04] MEDS ORDERED: MAG SULFATE 4GM BOLUS FROM BAG IV ONE (21:23)
--- NOTE | 2022-10-04 22:01 | History & Physical Report ---
Date of Service October 04, 2022 Assessment & Plan (1) Severe pre-eclampsia, : Plan: Dara is a 22-year-old approximately 5 days status post vaginal presents with preeclampsia with severe features as detailed above. Start magnesium per protocol. Will treat blood pressures as indicated. Discussed with patient possibility of longer term medications for blood pressure management. questions answered to the patient's satisfaction. History of Present Illness Primary Care Provider: [facility] Samantha is a 22-year-old approximately 5 days status post vaginal delivery. she of note patient had severe preeclampsia at 35 weeks which indicated for delivery. Patient received magnesium sulfate during labor and for 24 hours . Patient presents to elevated blood pressures at home and persistent headache. In the ED patient was noted have persistent severe range blood pressures. patient reports that she tried Motrin and Tylenol for headaches without any improvement. Denies any other preeclampsia symptoms. Labs for preeclampsia were unremarkable. I reviewed the blood pressure findings and discussed that with blood pressures alone and in addition to the headache that she does meet criteria for preeclampsia with severe features. I recommended that she be admitted for magnesium sulfate for seizure prophylaxis. Discussed that we would treat severe range blood pressures as needed and may initiate longer-term therapies for blood pressure management. Allergies Allergy/AdvReac Type Severity Reaction Status Date / Time No Known Allergies Allergy Verified 10/04/22 19:41 Home Medications Medication Instructions Recorded Confirmed Type prenat.vits,reji,nzz-lpru-xvjta 1 tab PO DAILY 09/29/22 10/04/22 History breast pump #1 ea 10/02/22 Rx nifedipine 30 mg tablet,extended 30 mg PO HS 10/04/22 10/04/22 History release 24 hr (Procardia XL) Patient History Medical History Cervical radicular pain Cervicalgia History of COVID-19 07/06/2022 Myofascial pain No significant past medical history Right hip pain Right shoulder pain Family History Mother Colorectal cancer, Onset Age: 33 Denies family history of Ovarian cancer Breast cancer Social History Smoking Status: Never smoker Second Hand Exposure: No; Hx Alcohol Use: No Hx Substance Use: No Preferred Language: Turkish Communication Ability: Effective Visual Impairment: No 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 Beliefs That Will Affect Care: Taoist Taoist Beliefs: no male for personal care reasons marital status: marital status details: kassandra (24) [phone] Current Living Situation: Spouse current occupational status: student Feels Safe at Home: Yes Assistive Devices: Glasses Results & Data ([facility]) Vital Signs (Past 12 Hours) Vital Signs Temp Pulse Pulse Resp BP BP Pulse Ox 10/04/22 19:25 86 10/04/22 19:20 92 H 21 161/107 H 96 10/04/22 18:49 36.7 C 91 H 20 187/106 H 99 O2 Del Method 10/04/22 19:25 10/04/22 19:20 Room Air 10/04/22 18:49 Room Air Coding Level of Care Code 73010 INT INP/OBS CARE 2/55MIN Diagnoses Severe pre-eclampsia, O14.15
[2022-10-04] MEDS: LABETALOL HCL 200 MG TAB PO SCH (23:29)
[2022-10-04] MEDS: MAGNESIUM SULFATE / WTR 40 GM/1,000 ML BAG IV SCH (23:47)
[2022-10-04] MEDS: LACTATED RINGER'S 1,000 ML IV PRN (23:48)
[2022-10-05] MEDS: LABETALOL HCL 200 MG TAB PO SCH ×2 (09:02→21:11)
--- NOTE | 2022-10-05 12:40 | Electrocardiogram Report ---
Test Reason : Blood Pressure : / mmHG Vent. Rate : 086 BPM Atrial Rate : 086 BPM P-R Int : 144 ms QRS Dur : 082 ms QT Int : 346 ms P-R-T Axes : 035 019 024 degrees QTc Int : 414 ms Poor data quality, interpretation may be adversely affected Normal sinus rhythm Normal ECG When compared with ECG of 02-OCT-2022 18:15, T wave amplitude has increased in Lateral leads Confirmed by Rayo Murphy ([id number]) on 10/05/2022 12:40:07 PM Referred By: REFERRED SELF Confirmed By:Rayo Murphy
[2022-10-05] MEDS: LACTATED RINGER'S 1,000 ML IV PRN (13:05)
[2022-10-05] MEDS: MAGNESIUM SULFATE / WTR 40 GM/1,000 ML BAG IV SCH (17:58)
--- NOTE | 2022-10-05 18:05 | Obstetrical Progress Note ---
Date of Service October 05, 2022 Assessment & Plan (1) Severe pre-eclampsia, : Plan BPs in normal range, on labetalol 200mg bid. will plan dc mag and alamo after 24hrs. move to floor, get more frequent bps at first to see if when more ambulatory bps are more controlled. asked pt to let nursing know if has that ear pain again as that seems to be sign in her that her bp is elevated. she verbalized understanding. for now no plan for further labs due to admission labs wnl. that may change if bps escalate after off mag Admission and Anticipated Discharge Date Admission Date: October 04, 2022 Subjective spoke to pt and she notes doing well. does have dull brown that she feels is due to the magnesium. no other pain. she was having same sx of ear pain at home and that is why she checked her bp and came to er. bps elevated there and brought to L&D after mag bolus started at about 822pm yesterday. has been eating, sitting up in bed, smiling. Review of Systems Constitutional: as per Subjective / HPI Physical Exam Constitutional: WD/WN, vitals as above Results & Data ([facility]) Vital Signs (Past 12 Hours) Vital Signs Temp Pulse Resp BP Pulse Ox O2 Del Method 10/05/22 17:00 20 10/05/22 16:06 20 10/05/22 15:20 98.2 F 20 10/05/22 14:00 20 10/05/22 13:00 20 10/05/22 11:59 20 10/05/22 11:11 98.2 F 18 10/05/22 10:00 20 10/05/22 09:08 20 10/05/22 08:00 20 10/05/22 07:30 98.4 F 20 10/05/22 07:30 Room Air 10/05/22 17:56 99 10/05/22 17:56 102 H 10/05/22 17:51 98 10/05/22 17:51 90 10/05/22 17:46 98 10/05/22 17:46 96 H 10/05/22 17:41 98 10/05/22 17:41 94 H 10/05/22 17:36 98 10/05/22 17:36 89 10/05/22 17:33 90 10/05/22 17:33 125/73 10/05/22 17:31 97 10/05/22 17:31 90 10/05/22 17:26 98 10/05/22 17:26 90 10/05/22 17:21 98 10/05/22 17:21 89 10/05/22 17:16 98 10/05/22 17:16 95 H 10/05/22 17:11 98 10/05/22 17:11 95 H 10/05/22 17:06 99 10/05/22 17:06 95 H 10/05/22 17:01 98 10/05/22 17:01 89 10/05/22 16:56 98 10/05/22 16:56 90 10/05/22 16:51 98 10/05/22 16:51 89 10/05/22 16:46 97 10/05/22 16:46 91 H 10/05/22 16:41 98 10/05/22 16:41 94 H 10/05/22 16:36 98 10/05/22 16:36 86 10/05/22 16:33 86 10/05/22 16:33 117/72 10/05/22 16:31 97 10/05/22 16:31 86 10/05/22 16:26 99 10/05/22 16:26 98 H 10/05/22 16:21 97 10/05/22 16:21 88 10/05/22 16:16 97 10/05/22 16:16 88 10/05/22 16:11 97 10/05/22 16:11 87 10/05/22 16:06 97 10/05/22 16:06 89 10/05/22 16:01 97 10/05/22 16:01 90 10/05/22 15:56 98 10/05/22 15:56 86 10/05/22 15:51 98 10/05/22 15:51 89 10/05/22 15:46 97 10/05/22 15:46 88 10/05/22 15:41 98 10/05/22 15:41 87 10/05/22 15:36 98 10/05/22 15:36 89 10/05/22 15:33 86 10/05/22 15:33 120/64 10/05/22 15:31 98 10/05/22 15:31 90 10/05/22 15:26 97 10/05/22 15:26 90 10/05/22 15:21 97 10/05/22 15:21 89 10/05/22 15:16 98 10/05/22 15:16 95 H 10/05/22 15:11 97 10/05/22 15:11 92 H 10/05/22 15:06 98 10/05/22 15:06 92 H 10/05/22 15:01 97 10/05/22 15:01 86 10/05/22 14:56 97 10/05/22 14:56 85 10/05/22 14:51 96 10/05/22 14:51 85 10/05/22 14:46 98 10/05/22 14:46 87 10/05/22 14:41 98 10/05/22 14:41 79 10/05/22 14:36 97 10/05/22 14:36 82 10/05/22 14:33 88 10/05/22 14:33 114/57 L 10/05/22 14:31 96 10/05/22 14:31 84 10/05/22 14:26 96 10/05/22 14:26 84 10/05/22 14:21 96 10/05/22 14:21 84 10/05/22 14:16 96 10/05/22 14:16 84 10/05/22 14:11 96 10/05/22 14:11 83 10/05/22 14:06 95 10/05/22 14:06 83 10/05/22 14:01 95 10/05/22 14:01 84 10/05/22 13:56 95 10/05/22 13:56 86 10/05/22 13:51 96 10/05/22 13:51 86 10/05/22 13:46 96 10/05/22 13:46 87 10/05/22 13:41 95 10/05/22 13:41 88 10/05/22 13:41 94 10/05/22 13:41 87 10/05/22 13:36 95 10/05/22 13:36 88 10/05/22 13:36 94 10/05/22 13:36 89 10/05/22 13:33 96 H 10/05/22 13:33 112/63 10/05/22 13:31 96 10/05/22 13:31 90 10/05/22 13:26 97 10/05/22 13:26 94 H 10/05/22 13:21 97 10/05/22 13:21 91 H 10/05/22 13:16 97 10/05/22 13:16 93 H 10/05/22 13:11 97 10/05/22 13:11 92 H 10/05/22 13:06 98 10/05/22 13:06 90 10/05/22 13:01 98 10/05/22 13:01 93 H 10/05/22 12:56 97 10/05/22 12:56 89 10/05/22 12:51 98 10/05/22 12:51 95 H 10/05/22 12:46 98 10/05/22 12:46 91 H 10/05/22 12:41 98 10/05/22 12:41 89 10/05/22 12:36 99 10/05/22 12:36 90 10/05/22 12:33 93 H 10/05/22 12:33 130/84 10/05/22 12:31 98 10/05/22 12:31 84 10/05/22 12:26 97 10/05/22 12:26 87 10/05/22 12:21 99 10/05/22 12:21 89 10/05/22 12:16 99 10/05/22 12:16 92 H 10/05/22 12:13 93 10/05/22 12:13 73 10/05/22 12:11 96 10/05/22 12:11 77 10/05/22 12:06 98 10/05/22 12:06 82 10/05/22 12:01 98 10/05/22 12:01 87 10/05/22 11:56 98 10/05/22 11:56 85 10/05/22 11:51 98 10/05/22 11:51 85 10/05/22 11:46 97 10/05/22 11:46 81 10/05/22 11:41 98 10/05/22 11:41 83 10/05/22 11:36 99 10/05/22 11:36 84 10/05/22 11:33 80 10/05/22 11:33 116/64 10/05/22 11:31 99 10/05/22 11:31 83 10/05/22 11:26 100 10/05/22 11:26 88 10/05/22 11:21 98 10/05/22 11:21 84 10/05/22 11:16 98 10/05/22 11:16 80 10/05/22 11:11 98 10/05/22 11:11 84 10/05/22 11:06 98 10/05/22 11:06 82 10/05/22 11:01 98 10/05/22 11:01 79 10/05/22 10:56 98 10/05/22 10:56 84 10/05/22 10:51 98 10/05/22 10:51 89 10/05/22 10:46 98 10/05/22 10:46 86 10/05/22 10:41 98 10/05/22 10:41 88 10/05/22 10:36 98 10/05/22 10:36 88 10/05/22 10:33 93 H 10/05/22 10:33 131/78 10/05/22 10:31 98 10/05/22 10:31 87 10/05/22 10:26 97 10/05/22 10:26 88 10/05/22 10:21 97 10/05/22 10:21 89 10/05/22 10:16 98 10/05/22 10:16 90 10/05/22 10:11 98 10/05/22 10:11 88 10/05/22 10:06 97 10/05/22 10:06 85 10/05/22 10:01 98 10/05/22 10:01 89 10/05/22 09:56 98 10/05/22 09:56 94 H 10/05/22 09:51 98 10/05/22 09:51 92 H 10/05/22 09:46 98 10/05/22 09:46 93 H 10/05/22 09:41 98 10/05/22 09:41 92 H 10/05/22 09:36 98 10/05/22 09:36 96 H 10/05/22 09:33 96 H 10/05/22 09:33 122/74 10/05/22 09:31 98 10/05/22 09:31 96 H 10/05/22 09:26 98 10/05/22 09:26 99 H 10/05/22 09:21 98 10/05/22 09:21 100 H 10/05/22 09:16 98 10/05/22 09:16 99 H 10/05/22 09:11 99 10/05/22 09:11 97 H 10/05/22 09:06 98 10/05/22 09:06 96 H 10/05/22 09:01 98 10/05/22 09:01 94 H 10/05/22 08:56 98 10/05/22 08:56 92 H 10/05/22 08:51 97 10/05/22 08:51 90 10/05/22 08:46 99 10/05/22 08:46 91 H 10/05/22 08:41 99 10/05/22 08:41 87 10/05/22 08:36 99 10/05/22 08:36 91 H 10/05/22 08:33 88 10/05/22 08:33 134/91 10/05/22 08:31 99 10/05/22 08:31 91 H 10/05/22 08:26 99 10/05/22 08:26 84 10/05/22 08:21 98 10/05/22 08:21 96 H 10/05/22 08:16 98 10/05/22 08:16 86 10/05/22 08:11 99 10/05/22 08:11 90 10/05/22 08:06 98 10/05/22 08:06 86 10/05/22 08:01 99 10/05/22 08:01 87 10/05/22 07:56 98 10/05/22 07:56 85 10/05/22 07:51 99 10/05/22 07:51 85 10/05/22 07:46 98 10/05/22 07:46 88 10/05/22 07:41 99 10/05/22 07:41 91 H 10/05/22 07:36 98 10/05/22 07:36 89 10/05/22 07:33 85 10/05/22 07:33 131/75 10/05/22 07:31 98 10/05/22 07:31 85 10/05/22 07:26 99 10/05/22 07:26 82 03/09/23 07:21 99 10/05/22 07:21 86 10/05/22 07:16 100 10/05/22 07:16 91 H 10/05/22 07:11 98 10/05/22 07:11 85 10/05/22 07:06 98 10/05/22 07:06 91 H 10/05/22 07:01 98 10/05/22 07:01 86 10/05/22 06:56 99 10/05/22 06:56 83 10/05/22 06:51 98 10/05/22 06:51 85 10/05/22 06:46 99 10/05/22 06:46 85 10/05/22 06:41 99 10/05/22 06:41 86 10/05/22 06:36 99 10/05/22 06:36 85 10/05/22 06:33 85 10/05/22 06:33 131/76 10/05/22 06:31 98 10/05/22 06:31 82 10/05/22 06:26 99 10/05/22 06:26 84 10/05/22 06:21 99 10/05/22 06:21 85 10/05/22 06:16 99 10/05/22 06:16 91 H 10/05/22 06:11 98 10/05/22 06:11 78 10/05/22 06:10 18 10/05/22 06:10 18 10/05/22 06:06 98 10/05/22 06:06 81 PG Care Time/CCT Total # of Minutes Spent Total Time Spent with Patient: Total time spent is greater than 50% in coordination of care (as documented) at patient's floor/unit and/or counseling patient: Coding Level of Care Code None Diagnoses Severe pre-eclampsia, O14.15
[2022-10-05] MEDS ORDERED: [UNRECOGNIZED DRUG - REMARK] ONE ×2 (20:30→23:30)
--- NOTE | 2022-10-06 06:39 | Obstetrical Progress Note ---
Date of Service October 06, 2022 Assessment & Plan (1) Severe pre-eclampsia, : Plan pt doing well. she needs to void spont. she is drinking water. bps are good on labetalol. will await more am values and if all stable plan dc home. she has appt in office on and will keep it. Subjective Ambulation: ambulating normally Diet Tolerance:: regular diet Lochia:: Small Feeding Type:: breast feeding (breast pumping and bottle feeding) denies brown or visual changes. no ruq pain. eating, has not voided since catheter removed. Constitutional: + as per Subjective / HPI Physical Exam Constitutional WD/WN, vitals as above Respiratory normal respiratory effort, lungs clear to auscultation Cardiovascular Rate/Rhythm: regular rate and regular rhythm Gastrointestinal (Abdomen) Inspection/Auscultation: abdomen normal to inspection Percussion/Palpation: abdomen soft; abdomen nontender fundus firm 2 cm below umbilicus Musculoskeletal nt calves no edema Neurologic grossly normal Psychiatric A+Ox3, euthymic affect Results & Data ([facility]) Vital Signs (Past 12 Hours) Vital Signs Temp Pulse Resp BP Pulse Ox O2 Del Method 10/06/22 03:57 97.9 F 81 18 131/87 97 10/06/22 01:58 88 18 113/75 10/05/22 23:58 97.9 F 76 20 124/86 96 10/05/22 23:00 18 10/05/22 22:00 16 10/05/22 21:00 18 10/05/22 20:00 16 10/05/22 19:00 98.2 F 18 10/05/22 19:00 Room Air 10/05/22 23:33 78 10/05/22 23:33 125/76 10/05/22 23:31 97 10/05/22 23:31 82 10/05/22 23:26 96 10/05/22 23:26 87 10/05/22 23:21 97 10/05/22 23:21 90 10/05/22 23:16 96 10/05/22 23:16 94 H 10/05/22 23:11 97 10/05/22 23:11 93 H 10/05/22 23:06 96 10/05/22 23:06 86 10/05/22 23:01 97 10/05/22 23:01 86 10/05/22 22:56 97 10/05/22 22:56 87 10/05/22 22:51 96 10/05/22 22:51 87 10/05/22 22:46 96 10/05/22 22:46 90 10/05/22 22:41 97 10/05/22 22:41 83 10/05/22 22:36 97 10/05/22 22:36 89 10/05/22 22:33 85 10/05/22 22:33 133/82 10/05/22 22:31 97 10/05/22 22:31 87 10/05/22 22:26 97 10/05/22 22:26 85 10/05/22 22:21 97 10/05/22 22:21 83 10/05/22 22:16 98 10/05/22 22:16 93 H 10/05/22 22:11 97 10/05/22 22:11 86 10/05/22 22:06 96 10/05/22 22:06 87 10/05/22 22:01 97 10/05/22 22:01 89 10/05/22 21:56 97 10/05/22 21:56 93 H 10/05/22 21:51 98 10/05/22 21:51 89 10/05/22 21:46 97 10/05/22 21:46 90 10/05/22 21:41 97 10/05/22 21:41 88 10/05/22 21:36 97 10/05/22 21:36 89 10/05/22 21:33 86 10/05/22 21:33 135/76 10/05/22 21:31 97 10/05/22 21:31 91 H 10/05/22 21:26 98 10/05/22 21:26 88 10/05/22 21:21 97 10/05/22 21:21 85 10/05/22 21:16 97 10/05/22 21:16 87 10/05/22 21:11 98 10/05/22 21:11 93 H 10/05/22 21:11 85 10/05/22 21:11 142/88 H 10/05/22 21:06 97 10/05/22 21:06 92 H 10/05/22 21:01 97 10/05/22 21:01 87 10/05/22 20:56 96 10/05/22 20:56 87 10/05/22 20:51 96 10/05/22 20:51 89 10/05/22 20:46 97 10/05/22 20:46 90 10/05/22 20:41 98 10/05/22 20:41 88 10/05/22 20:36 98 10/05/22 20:36 85 10/05/22 20:33 88 10/05/22 20:33 134/87 10/05/22 20:31 98 10/05/22 20:31 88 10/05/22 20:26 98 10/05/22 20:26 101 H 10/05/22 20:21 97 10/05/22 20:21 85 10/05/22 20:16 96 10/05/22 20:16 89 10/05/22 20:11 97 10/05/22 20:11 90 10/05/22 20:06 98 10/05/22 20:06 90 10/05/22 20:01 97 10/05/22 20:01 92 H 10/05/22 19:56 97 10/05/22 19:56 86 10/05/22 19:51 97 10/05/22 19:51 90 10/05/22 19:46 97 10/05/22 19:46 88 10/05/22 19:41 97 10/05/22 19:41 89 10/05/22 19:36 98 10/05/22 19:36 91 H 10/05/22 19:33 86 10/05/22 19:33 129/77 10/05/22 19:31 97 10/05/22 19:31 85 10/05/22 19:26 96 10/05/22 19:26 86 10/05/22 19:21 96 10/05/22 19:21 87 10/05/22 19:16 98 10/05/22 19:16 90 10/05/22 19:11 98 10/05/22 19:11 88 10/05/22 19:06 97 10/05/22 19:06 92 H 10/05/22 19:01 98 10/05/22 19:01 93 H 10/05/22 18:56 97 10/05/22 18:56 93 H 10/05/22 18:51 98 10/05/22 18:51 91 H 10/05/22 18:46 96 10/05/22 18:46 94 H 10/05/22 18:41 98 10/05/22 18:41 90 10/05/22 18:36 97 10/05/22 18:36 91 H
[2022-10-06] MEDS: LABETALOL HCL 200 MG TAB PO SCH (08:44)
--- NOTE | 2022-10-10 00:48 | Discharge Summary ---
Date of Service Date of admission: October 04, 2022 Date of discharge: October 06, 2022 Admission HPI Per Admitting Provider Samantha is a 22-year-old approximately 5 days status post vaginal delivery. she of note patient had severe preeclampsia at 35 weeks which indicated for delivery. Patient received magnesium sulfate during labor and for 24 hours . Patient presents to elevated blood pressures at home and persistent headache. In the ED patient was noted have persistent severe range blood pressures. patient reports that she tried Motrin and Tylenol for headaches without any improvement. Denies any other preeclampsia symptoms. Labs for preeclampsia were unremarkable. I reviewed the blood pressure findings and discussed that with blood pressures alone and in addition to the headache that she does meet criteria for preeclampsia with severe features. I recommended that she be admitted for magnesium sulfate for seizure prophylaxis. Discussed that we would treat severe range blood pressures as needed and may initiate longer-term therapies for blood pressure management. Discharge Data Consultations 10/04/22 20:50 ED Decision to Admit Stat Hospital Course (1) Severe pre-eclampsia, : Plan Patient was admitted for above diagnosis per my partner Dr. Escobar. See his full admission H&P. She was started on labetalol 200mg bid which controlled her severe range blood pressures and given 24hr magnesium seizure prophylaxis. Her headache improved. Her blood pressures remained stable >12hr after magnesium discontinued on these medications and she was sent home. Parameters to call reviewed. She already had appt planned in office for the sunday after discharge. Coding Level of Care Code None Diagnoses Severe pre-eclampsia, O14.15
== END 2022-10-06 11:10 | disposition home or self-care (01) | DRG 776 ==
LOC: ED 18:45 → 4S1 21:20 → 4E2 10-05 23:48

== ENCOUNTER 2024-11-25 18:44 | Inpatient (IN) ==
[2024-11-25] MEDS ORDERED: CALCIUM CARBONATE 500 MG CHEWABLE TAB PO PRN ×2 (19:21→20:51)
[2024-11-25 20:03] LABS: Hematocrit (blood only) 33.7 % (37.0-47.0); Hemoglobin 11.1 g/dl (12.0-16.0); Mean Corpuscular Hemoglobin 28.6 pg (25.0-34.0); Mean Corpuscular Hgb Conc 32.9 g/dL (32.0-36.0); Mean Corpuscular Volume 86.9 fL (80.0-100.0); Mean Platelet Volume 8.9 fL (9.4-12.4); Platelet Count 425 K/uL (130-400); RDW Coefficient of Variation 14.7 % (11.5-14.5); RDW Standard Deviation 45.7 fL (36.4-46.3); Red Blood Count 3.88 M/uL (4.20-5.40); White Blood Count 9.24 K/ul (4.8-10.8)
[2024-11-25 20:21] LABS: Creatinine Clr Calc Pharmacy 207.6 ml/min
[2024-11-25 20:48] LABS: Creatinine Urine Random 118.4 mg/dl; Protein Creatinine Ratio Urine 0.3 (0-0.2); Total Protein Urine Random 33.6 mg/dl (0-11.9)
[2024-11-25] MEDS ORDERED: ACETAMINOPHEN 500 MG TAB PO PRN (20:51)
[2024-11-25] MEDS ORDERED: OXYTOCIN 30 UNITS/NSS 30 UNITS/500 ML BAG IV PRN (20:51)
[2024-11-25] MEDS ORDERED: LIDOCAINE 1% LOCAL 20 ML VIAL INFIL PRN (20:51)
[2024-11-25] MEDS: ACETAMINOPHEN 500 MG TAB PO PRN (21:01)
--- NOTE | 2024-11-25 21:07 | History & Physical Report ---
Date of Service November 25, 2024 Assessment & Plan (1) Mild preeclampsia: Plan: Dara is a 24-year-old -1-0-1 currently at 37 weeks 3 days gestational age with preeclampsia without severe features. 1. Fetus: Category 1 tracing 2. Labor: Will start induction process will likely start with oxytocin per regular protocol pending nursing exam 3. GBS negative 4. Preeclampsia without severe features. Intermittent mild range blood pressures at present. Will continue to monitor and will start magnesium if meets criteria. (2) Term : Admission and Anticipated Discharge Date Admission Date: November 25, 2024 History of Present Illness Primary Care Provider: Rust Samantha is a 24-year-old -1-0-1 currently at 37 weeks 3 days gestational age presented for evaluation of elevated blood pressures at home in the setting of a known diagnosis of gestational hypertension. Has had labile blood pressures while on labor and delivery. Labs returned normal except for protein creatinine ratio which was elevated at 0.3 meet criteria for preeclampsia without severe features. Discussed findings with Dara and her partner today. Discussed recommendation for admission and induction of labor. Both agreeable with plan. OB Labs: Blood Type B Positive 04/29/24 Antibody Screen NEGATIVE 04/29/24 Hgb 11.5 g/dl (12.0-16.0) L 11/16/24 Hct 34.4 % (37.0-47.0) L 11/16/24 MCV 85.1 fL (80.0-100.0) 11/16/24 Plt Count 391 K/uL (130-400) 11/16/24 Rubella IgG Antibody Immune (Immune) 04/29/24 RPR Nonreactive (Nonreactive) 04/18/22 Treponema pallidum Ab Negative (Negative) 09/25/24 Hep Bs Antigen Negative (Negative) 04/29/24 Hep Bs Antigen NON-REACTIVE (NON-REACTIVE) 04/18/22 Hepatitis C Antibody Negative (Negative) 04/29/24 Hepatitis C Ab (EIA) NON-REACTIVE (NON-REACTIVE) 04/18/22 HIV 1&2 Ab/P24 Ag 4thGn Negative (Negative) 04/29/24 HIV (1&2) Ag & Ab Conf NON-REACTIVE (NON-REACTIVE) 04/18/22 Glucose 1 Hr 50 gm 125 mg/dl (70-130) 09/25/24 OB Optional Labs: Chlamydia trachomatis RNA Not Detected (NotDetected) 04/29/24 Neisseria gonorrhoeae RNA Not Detected (NotDetected) 04/29/24 Labs Reviewed: Declines genetics--mln Allergies Allergy/AdvReac Type Severity Reaction Status Date / Time No Known Allergies Allergy Verified 11/21/24 00:23 Home Medications Medication Instructions Recorded Confirmed Type vit no.133-ferrous 1 tab PO DAILY 05/29/24 11/21/24 History fumarate 28 mg-folic acid 800 mcg tablet () Patient History Medical History (Updated 11/25/24 @ 21:19 by Joshua Escobar MD) Varicella vaccination Severe pre-eclampsia, Pre-eclampsia COVID-19 virus infection Cervicalgia Myofascial pain Cervical radicular pain Cervical radiculopathy History of COVID-19 07/06/2022 Surgical History No history of previous surgery Family History Mother Colorectal cancer, Onset Age: 33 Denies family history of Ovarian cancer Breast cancer Social History Smoking Status: Never smoker Second Hand Exposure: No; Do You Dip or Chew Tobacco: No; Hx Alcohol Use: No Hx Substance Use: No Preferred Language: Somali Communication Ability: Effective Visual Impairment: No Limitations Hearing Ability: Normal Manager Case Management Required: No Beliefs That Will Affect Care: Baptist Baptist Beliefs: prefers only female providers marital status: marital status details: Darlene (26) [phone] Current Living Situation: Spouse and Family Current Living Situation Comment: and daughter (2yo) current occupational status: student current occupation: student [employer] Feels Safe at Home: Yes Safety Concerns: Feels Safe At This Time Assistive Devices: None Physical Exam Genitourinary: OB Exam Monitor Tracing: + external FHT monitor used, + ship officer al uterine monitor used, + category I and + normal FHT variability Cervical exam pending from nurse per patient request Results & Data Vital Signs (Past 12 Hours) Vital Signs Temp Pulse Resp BP 11/25/24 20:38 86 130/75 11/25/24 20:23 94 H 128/81 11/25/24 20:09 96 H 128/83 11/25/24 19:54 92 H 137/86 11/25/24 19:38 96 H 153/87 H 11/25/24 19:15 100 H 141/75 H 11/25/24 19:08 37.1 C 16 11/25/24 19:01 113 H 146/88 H Coding Level of Care Code None Diagnoses Mild pre-eclampsia in third trimester O14.03 Trimester: third trimester Term Z34.90 (1) Mild preeclampsia Trimester: third trimester Qualified Code(s): O14.03 - Mild to moderate pre- eclampsia, third trimester
[2024-11-25] MEDS: OXYTOCIN 30 UNITS/NSS 30 UNITS/500 ML BAG IV PRN (21:52)
[2024-11-25] MEDS: LACTATED RINGER'S 1,000 ML IV PRN (21:52)
[2024-11-26] MEDS ORDERED: fentaNYL citrate PF 100 MCG/2 ML VIAL EPI PRN (07:07)
[2024-11-26] MEDS ORDERED: NALOXONE HCL 1 MG in SODIUM CHLORIDE 0.9% 1,000 ML IV PRN (07:07)
[2024-11-26] MEDS ORDERED: ePHEDrine sulfate 50 MG/ML AMP IV PRN (07:07)
[2024-11-26] MEDS ORDERED: NALOXONE HCL 0.4 MG/1 ML VIAL/CARP IV PRN (07:07)
[2024-11-26] MEDS ORDERED: NALBUPHINE HCL INJ 10 MG/ML AMP IV PRN (07:07)
[2024-11-26] MEDS ORDERED: LIDOCAINE 2% MPF LOCAL 5 ML VIAL EPI PRN (07:07)
[2024-11-26] MEDS ORDERED: fentANYL 2 MCG/ML BUPIVacaine 0.125%-NSS 100ML BAG EPI PRN (07:07)
[2024-11-26] MEDS ORDERED: SODIUM CHLORIDE 0.9% PF INJ 10 ML VIAL EPI PRN (07:07)
[2024-11-26] MEDS ORDERED: diphenhydrAMINE 50 MG/ML VIAL IV PRN (07:07)
[2024-11-26] MEDS ORDERED: ROPIVACAINE 0.5% PF 5 MG/ML 20 ML VIAL EPI PRN (07:07)
--- NOTE | 2024-11-26 07:07 | Anesthesiology Consultation ---
Date of Service November 26, 2024 Assessment & Plan Chart Review Chart Review: Patient NOT seen in Pre Admission Testing and Acceptable Risk for Labor Epidural Consults Requested none History Height/Weight Height: 5 ft 6 in Weight: 103.873 kg Allergies Allergy/AdvReac Type Severity Reaction Status Date / Time No Known Allergies Allergy Verified 11/21/24 00:23 Medications Home Medications Medication Instructions Recorded Confirmed Last Taken vit no.133-ferrous 1 tab PO DAILY 05/29/24 11/21/24 1 Day Ago fumarate 28 mg-folic acid 800 mcg ~11/24/24 tablet () Active Medications Generic Name Dose Route Start Last Admin Trade Name Freq PRN Reason Stop Dose Admin Acetaminophen 1,000 mg 11/25/24 19:21 11/25/24 21:01 Acetaminophen 500 Mg Tab PO 12/25/24 19:20 1,000 mg Q8H PRN Administration Headache or Pain Lactated Ringer's 1,000 mls @ 125 mls/hr 11/25/24 20:51 11/26/24 07:05 Lr IV 11/26/24 20:50 999 mls/hr .Q8H PRN Infusion L&D Protocol Protocol Oxytocin 30 units in 500 mls @ 16 mls/hr 11/25/24 21:03 11/26/24 07:03 Pitocin 30 Units/Nss IV 11/27/24 21:02 0.96 units/hr .Q24H PRN 16 mls/hr Labor Induction/Augmentation Titration Protocol 0.96 UNITS/HR Past Medical History Medical History Varicella vaccination Severe pre-eclampsia, Pre-eclampsia COVID-19 virus infection Cervicalgia Myofascial pain Cervical radicular pain Cervical radiculopathy History of COVID-19 07/06/2022 Past Family History Family History Mother Colorectal cancer, Onset Age: 33 Denies family history of Ovarian cancer Breast cancer Past Surgical History Surgical History No history of previous surgery Social History Smoking Status: Never smoker Do You Dip or Chew Tobacco: No Hx Alcohol Use: No Hx Substance Use: No substance use type: does not use Physical Exam Vital Signs Last Vital Signs Temp 98.6 F 11/26/24 03:30 Pulse 81 11/26/24 05:13 Resp 16 11/26/24 03:30 BP 136/89 11/26/24 05:13 Testing Laboratory Results 11/25/24 19:48 11/25/24 19:48 Blood Type B Positive 11/25/24 21:04 Antibody Screen NEGATIVE 11/25/24 21:04
--- NOTE | 2024-11-26 07:10 | Labor Progress Brief Note ---
Date of Service November 26, 2024 Subjective Reason For Note: Routine Evaluation Assessment & Plan (1) Mild preeclampsia: Plan: Dara is a 24-year-old -1-0-1 currently at 37 weeks 4 days gestational age with preeclampsia without severe features. 1. Fetus: Category 1 tracing 2. Labor: Continue oxytocin per regular protocol. Will AROM when appropriate 3. GBS negative 4. Preeclampsia without severe features. Intermittent mild range blood pressures at present. Will continue to monitor and will start magnesium if meets criteria. Trimester: third trimester Qualified Code(s): O14.03 - Mild to moderate pre-eclampsia, third trimester (2) Term : Admission and Anticipated Discharge Date Admission Date: November 25, 2024 Physical Exam Genitourinary: OB Exam Monitor Tracing: + external FHT monitor used, + external uterine monitor used, + category I and + normal FHT variability Results & Data Vital Signs (Past 12 Hours) Vital Signs Temp Pulse Resp BP 11/26/24 05:13 81 136/89 11/26/24 04:11 77 138/84 11/26/24 03:30 16 11/26/24 03:30 37.0 C 16 11/26/24 03:14 90 139/93 11/26/24 02:11 75 134/88 11/26/24 01:13 72 141/94 H 11/26/24 00:30 16 11/26/24 00:30 36.8 C 16 11/26/24 00:14 67 140/94 11/25/24 23:12 72 124/61 11/25/24 22:11 77 140/78 11/25/24 20:38 86 130/75 11/25/24 20:23 94 H 128/81 11/25/24 20:09 96 H 128/83 11/25/24 19:54 92 H 137/86 11/25/24 19:38 96 H 153/87 H 11/25/24 19:15 100 H 141/75 H 11/25/24 19:08 37.1 C 16 Coding Level of Care Code None Diagnoses Mild pre-eclampsia in third trimester O14.03 Trimester: third trimester Term Z34.90
[2024-11-26] MEDS: fentaNYL citrate PF 100 MCG/2 ML VIAL ONE (07:27)
[2024-11-26] MEDS: BUPIVACAINE 0.25% PF 30 ML VIAL ONE (07:28)
[2024-11-26] MEDS: LIDOCAINE 2%/EPINEPHRINE 1:200,000 20 ML PF ONE (07:28)
[2024-11-26] MEDS: fentANYL 2 MCG/ML BUPIVacaine 0.125%-NSS 100ML BAG ONE (07:31)
[2024-11-26] MEDS: ONDANSETRON INJ 2 MG/ML 2 ML VIAL IV PRN (08:00)
[2024-11-26] MEDS ORDERED: NURSING L&D Epidural Breakthrough Pain Update ONE (08:21)
[2024-11-26] MEDS: fentaNYL citrate PF 100 MCG/2 ML VIAL EPI STA (08:29)
[2024-11-26] MEDS: BUPIVACAINE 0.25% PF 30 ML VIAL EPI STA (08:30)
[2024-11-26] MEDS: BUPIVACAINE 0.25% PF 30 ML VIAL EPI PRN (08:34)
[2024-11-26] MEDS: LIDOCAINE 2%/EPINEPHRINE 1:200,000 20 ML PF EPI STA (08:35)
[2024-11-26] MEDS: SODIUM CHLORIDE 0.9% PF INJ 10 ML VIAL EPI STA (08:35)
--- NOTE | 2024-11-26 08:36 | Anesthesia Procedure Note ---
Date of Service November 26, 2024 Anesthesia Epidural Re-Dose Vital Signs Temp Pulse Resp BP Pulse Ox O2 Del Method 98.6 F 71 16 150/85 H 93 Room Air 11/26/24 03:30 11/26/24 08:32 11/26/24 03:30 11/26/24 08:25 11/26/24 08:32 11/26/24 07:40 Notes Pain Intensity: 6 Dilatation (cm): 2.5 Effacement (%): 50 Called by nursing to evaluate epidural as the patient is having increased pain. The epidural was re-dosed with the following medications (all medications via epidural route) after negative aspiration of the epidural catheter for CSF/HEME. 0.25% Bupivacaine 5mll) with 100 mcg Level L2-3 bl to cold sensation before redose After Epidural Re-Dose Mental Status: alert / awake / arousable Pain: improving with treatment Airway Patency, RR, SpO2: stable & adequate BP & HR: stable & adequate
--- NOTE | 2024-11-26 09:01 | Labor Progress Brief Note ---
Date of Service November 26, 2024 Subjective Very uncomfortable so had redose of epidural. Getting better now. Assessment & Plan (1) Mild preeclampsia: Plan: IOL due to mild preE at >37wk. Multip but first baby was [id number], this one may be a pound or so larger based on US. Anterior position of cervix relayed to RN, will try spinning babies positions to try to help descent occur. Trimester: third trimester Qualified Code(s): O14.03 - Mild to moderate pre-eclampsia, third trimester (2) Term : Admission and Anticipated Discharge Date Admission Date: November 25, 2024 Physical Exam Genitourinary: Mucus and clear fluid on chux. 5/100/-3 (cervix and presenting vertex a re high and anterior, but applied and reachable above/behind pubic symphysis) FHT 130 mod emmy +acc +early decels with each ctx. Results & Data Vital Signs (Past 12 Hours) Vital Signs Temp Pulse Resp BP Pulse Ox O2 Del Method 11/26/24 08:54 78 94 11/26/24 08:53 75 137/79 11/26/24 08:52 77 94 11/26/24 08:47 73 94 11/26/24 08:42 84 95 11/26/24 08:41 74 94 11/26/24 08:38 80 140/79 11/26/24 08:37 83 82 L 11/26/24 08:32 71 93 11/26/24 08:27 90 100 11/26/24 08:25 103 H 150/85 H 11/26/24 08:22 96 H 99 11/26/24 08:21 81 92 11/26/24 08:17 88 98 11/26/24 08:15 85 149/92 H 11/26/24 08:12 80 92 11/26/24 08:09 82 145/89 H 11/26/24 08:07 80 92 11/26/24 08:02 80 97 11/26/24 07:59 83 94 11/26/24 07:57 91 H 98 11/26/24 07:53 82 129/65 93 11/26/24 07:52 83 97 11/26/24 07:51 90 135/69 11/26/24 07:49 93 H 145/86 H 11/26/24 07:47 95 11/26/24 07:47 91 H 11/26/24 07:47 94 H 146/90 H 11/26/24 07:45 89 144/86 H 11/26/24 07:43 93 H 142/85 H 93 11/26/24 07:42 90 95 11/26/24 07:41 89 142/83 H 11/26/24 07:40 Room Air 11/26/24 07:39 88 142/76 H 11/26/24 07:37 98 11/26/24 07:37 88 11/26/24 07:37 93 H 137/79 11/26/24 07:35 99 H 93 11/26/24 07:33 81 138/67 11/26/24 07:32 96 H 98 11/26/24 07:31 95 H 140/77 11/26/24 07:29 114 H 188/96 H 11/26/24 07:27 98 11/26/24 07:27 109 H 11/26/24 07:27 107 H 132/66 11/26/24 07:25 85 137/79 11/26/24 07:23 80 133/90 11/26/24 07:22 83 99 11/26/24 07:21 100 H 132/85 11/26/24 07:17 84 99 11/26/24 07:14 95 H 90 11/26/24 07:12 97 11/26/24 07:12 98 H 11/26/24 07:12 89 139/87 11/26/24 05:13 81 136/89 11/26/24 04:11 77 138/84 11/26/24 03:30 16 11/26/24 03:30 98.6 F 16 11/26/24 03:14 90 139/93 11/26/24 02:11 75 134/88 11/26/24 01:13 72 141/94 H 11/26/24 00:30 16 11/26/24 00:30 98.2 F 16 11/26/24 00:14 67 140/94 11/25/24 23:12 72 124/61 11/25/24 22:11 77 140/78 Coding Level of Care Code None Diagnoses Mild pre-eclampsia in third trimester O14.03 Trimester: third trimester Term Z34.90
--- NOTE | 2024-11-26 10:27 | Delivery Summary ---
Vaginal Delivery Summary Date of Service November 26, 2024 Vaginal Delivery Summary DIAGNOSES: 1. Esteban intrauterine at 37w4d gestation. 2. Induction of labor due to mild preeclampsia. 3. Group B Streptococcus Neg. PROCEDURE: Spontaneous vaginal delivery without laceration. SURGEON: Yovana Cartagena MD. FIRST RESPONDER: None. ESTIMATED BLOOD LOSS: 100 mL. COMPLICATIONS: None. PLACENTA: Spontaneous and intact with a 3-vessel cord. DISPOSITION: Stable to labor and delivery. DESCRIPTION: The patient pushed well and brought the head to in DOA position in a single push. She delivered the head while the nurse was calling to me where I stood outside 421 at the nursing station. I quickly gloved. There was no nuchal cord. The shoulders and body delivered without any difficulty in the next push. The baby was making respiratory efforts and seen to flex and extend its feet and legs while it rested on the mom's chest. The LD RN provided bulb suction and tactile stim while nursery staff arrived to the room. The cord was doubly clamped by the MD and then cut so the could be taken to the warmer, where it made its first audible cry. The placenta delivered spontaneously and was noted to be intact and with a 3VC. The cervix, vagina and perineum were examined and were found to be without defect requiring repair. The fundus was firm and lochia minimal immediately after delivery. [facility] Vaginal Delivery Charge Vaginal Delivery Codes: 80704 global code for the antepartum, delivery, and post-
[2024-11-26] MEDS: SODIUM CHLORIDE 0.9% PF INJ 10 ML VIAL ONE (10:34)
[2024-11-26] MEDS: ePHEDrine sulfate 50 MG/ML AMP ONE (10:34)
[2024-11-26] MEDS ORDERED: OXYTOCIN 30 UNITS/NSS 30 UNITS/500 ML BAG IV PRN (10:34)
[2024-11-26] MEDS ORDERED: HYDROCORTISONE ACETATE 25 MG SUPP PR PRN (10:34)
[2024-11-26] MEDS ORDERED: DIPHTHER/TETAN/PERTUS Vaccine (Tdap, Adol/Adult) 0.5mL IM ONE (10:34)
[2024-11-26] MEDS ORDERED: BENZOCAINE 20% SPRY 85 APPLN/85 GM CAN EXT PRN (10:34)
[2024-11-26] MEDS ORDERED: bisacodyL 10 MG SUPP PR PRN (10:34)
[2024-11-26] MEDS ORDERED: oxyCODONE/ACETAMINOPHEN 5mg/325mg TAB PO PRN (10:34)
--- NOTE | 2024-11-26 10:50 | Anesthesia Procedure Note ---
Date of Service November 26, 2024 Anesthesia Post Epidural Note Vital Signs Vital Signs: Temp Pulse Resp BP Pulse Ox O2 Del Method 98.6 F 91 H 18 136/83 99 Room Air 11/26/24 09:30 11/26/24 10:47 11/26/24 09:30 11/26/24 10:39 11/26/24 10:47 11/26/24 07:40 Pain Intensity Abdomen: Pain Intensity: 6 Notes Mental Status: alert / awake / arousable and participated in evaluation Nausea / Vomiting: adequately controlled Pain: adequately controlled Airway Patency, RR, SpO2: stable & adequate BP & HR: stable & adequate Hydration State: stable & adequate Neuraxial Anesthesia: was administered and sensory block is resolving Anesthetic Complications: no major complications apparent and Pt Satisfied with anesthetic care Epidural: Removed without complications and With tip intact
[2024-11-26] MEDS: IBUPROFEN 600 MG TAB PO PRN (15:20)
[2024-11-26] MEDS: ACETAMINOPHEN 325 MG TAB PO PRN (21:57)
[2024-11-26] MEDS: DOCUSATE SODIUM 100 MG CAP PO SCH (21:57)
[2024-11-27 06:21] LABS: Hematocrit (blood only) 31.2 % (37.0-47.0); Hemoglobin 10.3 g/dl (12.0-16.0); Mean Corpuscular Hemoglobin 28.4 pg (25.0-34.0); Platelet Count 379 K/uL (130-400); RDW Coefficient of Variation 14.4 % (11.5-14.5); RDW Standard Deviation 44.4 fL (36.4-46.3); Red Blood Count 3.63 M/uL (4.20-5.40); White Blood Count 10.63 K/ul (4.8-10.8)
--- NOTE | 2024-11-27 07:14 | Obstetrical Progress Note ---
Date of Service November 27, 2024 Assessment & Plan (1) Mild preeclampsia: BP normalized and no symptoms currently that relate to PIH. Some LEFT abdominal upper quadrant discomfort reported intermittent per pt, no ttp and no findings on exam, ?gas, encouraged ambulation. TOV this morning after urinary retention last evening and overnight with alamo placement. Trimester: third trimester Qualified Code(s): O14.03 - Mild to moderate pre-eclampsia, third trimester Subjective Ambulation: ambulating normally Voiding: alamo catheter in place (TOV this morning) Passing Gas:: Yes Diet Tolerance:: regular diet Lochia:: Small Feeding Type:: breast feeding Physical Exam Constitutional WD/WN, vitals as above Eyes PERRL, conjunctivae normal, anicteric sclerae Neck normal visual inspection Respiratory normal respiratory effort and able to speak in complete sentences; no respiratory distress and no labored breathing Cardiovascular Rate/Rhythm: regular rate and regular rhythm Extremities: no edema Chest (Breasts) Chest: normal inspection of chest Gastrointestinal (Abdomen) Inspection/Auscultation: abdomen normal to inspection Soft, postgravid Psychiatric A+Ox3, euthymic affect Genitourinary OB Exam Abdomen: + fundal height Fundus: + firm and + relation to umbilicus (fundus just below umbilicus); not tender Results & Data Vital Signs (Past 12 Hours) Vital Signs Temp Pulse Pulse Resp BP BP Pulse Ox 11/27/24 04:35 97.9 F 85 18 132/85 98 11/26/24 23:15 11/26/24 23:15 97.9 F 84 18 125/78 98 11/26/24 20:00 98.1 F 81 16 140/89 97 O2 Del Method 11/27/24 04:35 Room Air 11/26/24 23:15 Room Air 11/26/24 23:15 Room Air 11/26/24 20:00 Room Air
[2024-11-27] MEDS: PRENATAL VITAMIN 1 TAB PO SCH (07:57)
[2024-11-27] MEDS: bisacodyL 5 MG TABEC PO SCH (20:47)
[2024-11-28 07:30] LABS: Hematocrit (blood only) 32.6 % (37.0-47.0); Hemoglobin 10.7 g/dl (12.0-16.0)
--- NOTE | 2024-11-28 07:43 | Obstetrical Progress Note ---
Date of Service November 28, 2024 Assessment & Plan (1) Mild preeclampsia: PPD#2 doing well, DC home. Watching BPs this morning. Trimester: third trimester Qualified Code(s): O14.03 - Mild to moderate pre-eclampsia, third trimester Subjective Ambulation: ambulating normally Voiding: no voiding problems Diet Tolerance:: regular diet Lochia:: Moderate Review of Systems All systems reviewed & are unremarkable except as noted in HPI & below Physical Exam Constitutional WD/WN, vitals as above no acute distress Respiratory normal respiratory effort Cardiovascular Rate/Rhythm: regular rate and regular rhythm Gastrointestinal (Abdomen) Inspection/Auscultation: abdomen normal to inspection; abdomen not distended Percussion/Palpation: abdomen soft Genitourinary OB Exam Abdomen: + fundal height Fundus: + firm; not tender Results & Data Vital Signs (Past 12 Hours) Vital Signs Temp Pulse Resp BP Pulse Ox O2 Del Method 11/28/24 05:45 143/85 H 11/28/24 01:50 78 148/94 H 11/28/24 01:47 151/98 H 11/28/24 00:45 153/99 H 11/28/24 00:20 36.8 C 84 18 155/96 H 97 Room Air
[2024-11-28] MEDS: NIFEdipine EXTENDED REL 30 MG TABCR PO STA (09:31)
[2024-11-28] MEDS: NIFEdipine 10 MG CAP PO STA (12:20)
--- NOTE | 2024-11-28 12:23 | Obstetrical Progress Note ---
Date of Service November 28, 2024 Assessment & Plan (1) Mild preeclampsia: (2) hypertension: Plan given bps >150/100 have dose xl procardia, but will plan 10mg immed release now. will reasses pt sx in 1hr. pulse ox and pulse normal. unclear if her ear "heat" is due to bp. if unclear continued sx after we bring bp down will consider more evaluation/testing as appropriate. pt agreeable. reviewed last chem profile done few days ago. will add now. Admission and Anticipated Discharge Date Admission Date: November 25, 2024 Subjective CTSP by nursing due to pt noting left side sensation in ear to neck and arm. no palpitations. slight sob. no other concerns. feels tired. is breast feeding. denies anxiety. this am we started bp medicine due to sbps >150, she is still showing elevated bps. no urinary sx, no leg pain, no bleeding issues. baby is well. she is dressed to go home. She describes the ear sx as if hot air blowing in ear. Review of Systems Constitutional: as per Subjective / HPI Physical Exam Constitutional: WD/WN, vitals as above no acute distress and not ill appearing Respiratory: normal respiratory effort, lungs clear to auscultation Cardiovascular: Rate/Rhythm: regular rate and regular rhythm Musculoskeletal: no edema nontender calves Neurologic: grossly normal Psychiatric: A+Ox3, euthymic affect (NAD) Results & Data Vital Signs (Past 12 Hours) Vital Signs Temp Pulse Resp BP Pulse Ox O2 Del Method 11/28/24 11:55 99.0 F 94 H 18 153/100 H 98 Room Air 11/28/24 05:45 143/85 H 11/28/24 01:50 78 148/94 H 11/28/24 01:47 151/98 H 11/28/24 00:45 153/99 H PG Care Time/CCT Total # of Minutes Spent Total Time Spent with Patient: Total time spent is greater than 50% in coordination of care (as documented) at patient's floor/unit and/or counseling patient: Coding Level of Care Code None Diagnoses Mild pre-eclampsia in third trimester O14.03 Trimester: third trimester hypertension O16.5 (1) Mild preeclampsia Trimester: third trimester Qualified Code(s): O14.03 - Mild to moderate pre- eclampsia, third trimester
[2024-11-28 13:20] LABS: Albumin Globulin Ratio 1.1 (0.9-2); Albumin Level 3.4 gm/dl (3.4-5.0); BUN Creatinine Ratio 15.1 (10-20); Bilirubin Direct 0.1 mg/dl (0-0.2); Bilirubin,Total 0.4 mg/dl (0.2-1.0); Creatinine Clr Calc Pharmacy 195.9 ml/min; Potassium 3.9 mmol/L (3.5-5.1); Total Protein 6.4 gm/dl (6.0-8.3)
[2024-11-28] MEDS: LABETALOL HCL 200 MG TAB PO ONE (13:57)
--- NOTE | 2024-11-28 16:15 | Obstetrical Progress Note ---
Date of Service November 28, 2024 Assessment & Plan (1) Mild preeclampsia: (2) hypertension: Plan continues to require admission for mgmt of pp bps. ? now SE on labetalol, will need to monitor response to this med and query pt about cont use. used in past without issue and she felt was effective. Admission and Anticipated Discharge Date Admission Date: November 25, 2024 Subjective Pt cont with bp elevation despite use of immed release nifed and dosing of XR. states the med with used with last was gurpreet well and worked, after review of record that was labetalol. she was agreeable to change. 200mg po x 1 given so far, need to see bp response. pt noting feeling like 'bugs crawling on scalp', i reviewed avail info on SE of labetalol. will monitor for rash but not likely se of labetalol. Her other complaints of ear "heat", neck and chest and left arm discomfort are now resolved. Results & Data Vital Signs (Past 12 Hours) Vital Signs Temp Pulse Resp BP Pulse Ox O2 Del Method 11/28/24 13:30 97.9 F 90 18 152/95 H 98 Room Air 11/28/24 11:55 99.0 F 94 H 18 153/100 H 98 Room Air 11/28/24 10:30 161/94 H 11/28/24 09:30 86 163/102 H 11/28/24 08:30 154/93 H 11/28/24 08:00 Room Air 11/28/24 08:00 98.1 F 87 18 154/99 H 99 Room Air 11/28/24 05:45 143/85 H PG Care Time/CCT Total # of Minutes Spent Total Time Spent with Patient: Total time spent is greater than 50% in coordination of care (as documented) at patient's floor/unit and/or counseling patient: Coding Level of Care Code None Diagnoses Mild pre-eclampsia in third trimester O14.03 Trimester: third trimester hypertension O16.5 (1) Mild preeclampsia Trimester: third trimester Qualified Code(s): O14.03 - Mild to moderate pre- eclampsia, third trimester
[2024-11-28] MEDS ORDERED: hydrOXYzine HCl 25 MG TAB PO PRN (17:45)
--- NOTE | 2024-11-28 18:53 | Communication Note ---
Date of Service: November 28, 2024 conversation with pt. she is convinced the formication sx she feels is related to labetalol. i saw no likelihood of such and discussed with pharmacist who also thinks this doubtful. but as such, will go back to nifedipine dosing. and plan 60mg xl at 9pm and go from there. she is aware of goal bps for dc and may take longer as we are changing up the meds. she accepts this. currently no other sx. i explained to pt in collaboration with her nursing team that i feel she needs rest, she has not slept for more than 2hr in the last 24+hr i am told. she says she "cannot sleep in the hospital." I explained how this could be contributing to her other sx, that she is not complaining of now but has complained about earlier today like brown, muscle pain, ? formication. i ordered and rec she consider taking atarax, might help her with her formication sx and help her sleep, i did also order ambien as alternative. she says spouse coming back with other child and if she is sleepy he would have to take care of both of children (toddler and ). Perhaps that is what he may need to do for her to feel better, discussed with pt. Nevertheless, i have given her multiple options to help and now up to her to decide what she wants to do. Again since she is convinced of se of labetalol, i have changed back to nifed xl.
[2024-11-28] MEDS: ZOLPIDEM TARTRATE 5 MG TAB PO PRN (20:45)
[2024-11-28] MEDS: NIFEdipine EXTENDED REL 30 MG TABCR PO SCH (20:45)
[2024-11-28] MEDS ORDERED: LABETALOL HCL 200 MG TAB PO SCH (21:00)
[2024-11-28 23:09] VITALS: O2SAT 99
--- NOTE | 2024-11-29 08:20 | Obstetrical Progress Note ---
Date of Service November 29, 2024 Assessment & Plan (1) care following vaginal delivery: Plan stable doing well pp, here moreso for bp control, bp this am noted. feel need to add medication to current regimen, will dc with oncoming md and make plan. pt had se from labetalol and so will likely need to suhail with procardia dosing to see how can control. addendum: spoke to pharm and will add 30mg xl now and change pm dose to 90mg qpm. recheck bp in about 2-4h and then if ok can dc home. will have nurse message [employer] machine operator provider to send appropriate script etc. Day #:: 3 Subjective Ambulation: ambulating normally Voiding: no voiding problems Diet Tolerance:: regular diet Lochia:: Small Feeding Type:: breast feeding denies concerns this am. has had brown on and off, changes in location. did finally get sleep last pm. now on procardia xl 60mg. 1st dose was last night. Constitutional: + as per Subjective / HPI Physical Exam Constitutional WD/WN, vitals as above Respiratory normal respiratory effort, lungs clear to auscultation Cardiovascular Rate/Rhythm: regular rate and regular rhythm Gastrointestinal (Abdomen) Inspection/Auscultation: abdomen normal to inspection Percussion/Palpation: abdomen soft Fundus firm 2cm down Musculoskeletal nt calves no edema Neurologic grossly normal Psychiatric A+Ox3, euthymic affect Results & Data Vital Signs (Past 12 Hours) Vital Signs Temp Pulse Resp BP Pulse Ox O2 Del Method 11/29/24 07:40 98.4 F 94 H 16 Room Air 11/29/24 03:41 107 H 150/90 H 11/28/24 23:07 98.1 F 89 16 127/78 99 Room Air 11/28/24 20:45 82 150/96 H
[2024-11-29 08:29] VITALS: BP 155/85; PULSE 98; RESP 18; TEMP 98.2
[2024-11-29] MEDS: NIFEdipine EXTENDED REL 30 MG TABCR PO STA (08:51)
[2024-11-29] MEDS ORDERED: NIFEdipine EXTENDED REL 30 MG TABCR PO SCH (21:00)
== END 2024-11-29 14:11 | disposition home or self-care (01) | DRG 807 ==
LOC: OPB 18:44 → 4S1 18:46 → 4E2 11-26 13:10

== ENCOUNTER 2025-02-03 19:44 | Observation (INO) ==
[2025-02-03 20:12] LABS: Hematocrit (blood only) 38.8 % (37.0-47.0); Hemoglobin 12.4 g/dl (12.0-16.0); Immature Granulocytes # (auto) 0.03 K/uL (0.01-0.20); Immature Granulocytes % (auto) 0.3 %; Mean Corpuscular Hemoglobin 27.4 pg (25.0-34.0); Mean Corpuscular Volume 85.8 fL (80.0-100.0); Platelet Count 346 K/uL (130-400); RDW Standard Deviation 47.1 fL (36.4-46.3); Red Blood Count 4.52 M/uL (4.20-5.40); White Blood Count 9.11 K/ul (4.8-10.8)
[2025-02-03 20:30] LABS: Alanine Aminotransferase 11.0 U/L (7-52); Albumin Globulin Ratio 1.2 (0.9-2); Alkaline Phosphatase 72.0 U/L (34-104); Anion Gap 6.0 (3-11); Bilirubin,Total 0.5 mg/dl (0.2-1.0); Blood Urea Nitrogen 15.0 mg/dl (6-23); Calcium 9.9 mg/dl (8.6-10.3); Carbon Dioxide 28.0 mmol/L (21-32); Chloride 105.0 mmol/L (98-107); Creatinine Clr Calc Pharmacy 127.5 ml/min; Globulin 3.3 gm/dl (2.5-4.0); Glucose 95.0 mg/dl (70-99(Fasting)); Lipase 27.0 U/L (11-82); Potassium 4.0 mmol/L (3.5-5.1); Sodium 139.0 mmol/L (136-145); Total Protein 7.4 gm/dl (6.0-8.3)
[2025-02-03 20:35] LABS: Pregnancy Test, Serum Negative (Negative)
--- NOTE | 2025-02-03 20:43 | Emergency Department Note ---
Impression & Plan Acute appendicitis, Abdominal pain ED Provider Note NAME: DEBBIE PAIZ AGE: 24 SEX: F : 2000 ARRIVES VIA: Walk-In INFORMANT: Patient ED PROVIDER(S): Aleksandr Paz DO CHIEF COMPLAINT: Abdominal pain HPI: Patient is a 24-year-old female who delivered vaginally on 26 November who presents to the ER for left-sided abdominal pain which has been present since then. She notes that radiates from the right lower quadrant up to the left upper. This has been present since delivery. She has been having back pain on the left side which started within the past week. She mitts to nausea but no vomiting. Denies any headache or change in vision. No chest pain or shortness of breath. No dysuria, urgency, or frequency. No other exacerbating or remitting factors. ADDITIONAL HISTORY OBTAINED: Per HPI Chronic Medical/Social Conditions Affecting Care: Per HPI PAST MEDICAL HISTORY:See Below PAST SURGICAL HISTORY:See Below FAMILY HISTORY:See Below SOCIAL HISTORY:See Below HOME MEDICATIONS:See Below ALLERGIES:See Below VITALS:See Below PHYSICAL EXAMINATION: GENERAL: Sitting up in bed, alert, well appearing, well nourished, no distress, non-toxic EYE EXAM: normal conjunctiva. PERRL and EOM's intact. OROPHARYNX: no exudate, no erythema, lips, buccal mucosa, and tongue normal and mucous membranes are moist NECK: supple, no nuchal rigidity, no adenopathy, non-tender LUNGS: Clear to auscultation. Normal chest wall mechanics HEART: no murmurs, S1 normal and S2 normal ABDOMEN: abdomen soft, tender palpation right lower quadrant, normo-active bowel sounds, no masses, no rebound or guarding. UPPER EXTREMITIES: upper extremities are grossly normal. LOWER EXTREMITIES: No pitting edema. NEURO EXAM: Normal sensorium, cranial nerves II-XII intact, normal speech, no weakness of arms, no weakness of legs. No drift. Finger to nose intact. Gross sensation intact. MEDICAL DECISION MAKING: Patient is a 24-year-old female who presents ER for the above-stated complaint. IV was established and blood work was obtained. Labs showed no significant leukocytosis or anemia. BMP along with LFTs bilirubin and lipase was unremarkable. hCG was negative. UA was contaminated. Patient has no urinary symptoms. Will not treat at this time. CT abdomen pelvis suggest acute appendicitis. Patient was given IV fluids. Declined pain medications. She was given 2 g cefoxitin. Discussed with Dr. Jaquez from general surgery for further evaluation management and treatment. Patient was admitted to the hospital. Please see their note for further details. Consults/Care Managements Discussions: Per [facility] Triage Nursing notes reviewed. Limited review of prior medical records performed Vital Signs: reviewed and remarkable for no significant abnormalities Differential diagnosis: Differential diagnoses includes but is not limited to gastritis, peptic ulcer disease, GERD, gallbladder disease, pancreatitis, small bowel obstruction, appendicitis, diverticulitis, hernia, urinary tract infection, torsion, /ectopic (if female), perforation, trauma, infectious. ER treatment provided: See below Diagnostics interpreted by me include EKG and cardiac monitoring as listed below: -Cardiac Monitoring: An order was placed for continuous cardiac monitoring. The monitor shows a rate of 78 with sinus rhythm. -ECG: none -Laboratory studies:Interpreted by me as stated above in MDM and shown below. Imaging studies: Xrays: As interpreted by me:none CTs show: CT abdomen pelvis per my preliminary interpretation showed no obvious bowel obstruction CT abdomen pelvis per radiology as described above Procedures:[none] Critical Care: [None] Past Med/Surg History Problem List (Updated 02/04/25 @ 00:38 by Aleksandr Paz DO) Abdominal pain (Acute) Acute appendicitis (Acute) care following vaginal delivery hypertension Mild preeclampsia History of delivery, currently History of pre-eclampsia Hypomagnesemia (Acute) Medical History Varicella vaccination Severe pre-eclampsia, Pre-eclampsia COVID-19 virus infection Cervicalgia Myofascial pain Cervical radicular pain Cervical radiculopathy History of COVID-19 07/06/2022 Surgical History No history of previous surgery Family History Mother Colorectal cancer, Onset Age: 33 Denies family history of Ovarian cancer Breast cancer Social History Smoking Status: Never smoker Second Hand Exposure: No; Do You Dip or Chew Tobacco: No; Hx Alcohol Use: No Hx Substance Use: No Preferred Language: Korean Communication Ability: Effective Visual Impairment: No Limitations Hearing Ability: Normal 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 Beliefs That Will Affect Care: Shinto Shinto Beliefs: prefers only female providers marital status: marital status details: Darlnee (26) [phone] Current Living Situation: Spouse and Family Current Living Situation Comment: and daughter (2yo) current occupational status: student current occupation: student [employer] Feels Safe at Home: Yes Assistive Devices: None Allergies Allergies Allergy/AdvReac Type Severity Reaction Status Date / Time No Known Allergies Allergy Verified 02/03/25 23:22 Home Meds Home Medications Medication Instructions Recorded Confirmed vits no.133-ferrous 1 tab PO DAILY 05/29/24 02/03/25 fumarate 28 mg-folic acid 800 mcg tablet () Results & Data (ED) Vital Signs Vital Signs - 24 hr 02/03/25 19:50 02/03/25 22:29 Temperature 36.8 C Temperature Source Temporal Artery Scan Pulse Rate 74 Pulse Rate [Apical] 76 Pulse Rhythm [Apical] Regular Pulse Strength [Apical] Normal Respiratory Rate 17 16 Respiratory Effort / Characteristics Non-Labored Spontaneous Non-Labored Spontaneous Respiratory Depth Normal Normal Respiratory Pattern Regular Blood Pressure 130/86 Blood Pressure [Right Arm] 126/87 Blood Pressure Mean 100 Blood Pressure Mean [Right Arm] 100 Pulse Oximetry 98 100 Oxygen Delivery Method Room Air Room Air Sepsis Recent Fever Within 48 Hours No Sepsis New/Unexplained Change in Mental Status N/A Sepsis Action Taken by Nursing No Action Required Laboratory Data 02/03/25 20:00 02/03/25 20:00 Lab Results 02/03/25 02/03/25 Range/Units 20:00 20:37 WBC 9.11 (4.8-10.8) K/ul RBC 4.52 (4.20-5.40) M/uL Hgb 12.4 (12.0-16.0) g/dl Hct 38.8 (37.0-47.0) % MCV 85.8 (80.0-100.0) fL MCH 27.4 (25.0-34.0) pg MCHC 32.0 (32.0-36.0) g/dL RDW Std Deviation 47.1 H (36.4-46.3) fL RDW Coeff of Jasmyne 15.0 H (11.5-14.5) % Plt Count 346 (130-400) K/uL MPV 8.5 L (9.4-12.4) fL Immature Gran % (Auto) 0.3 % Neut % (Auto) 54.3 % Lymph % (Auto) 36.9 % Boundary % (Auto) 7.2 % Eos % (Auto) 0.9 % Baso % (Auto) 0.4 % Neut # (Auto) 4.94 (1.40-6.50) K/uL Lymph # (Auto) 3.36 (1.20-3.40) K/uL Boundary # (Auto) 0.66 H (0.11-0.59) K/uL Eos # (Auto) 0.08 (0.00-0.50) K/uL Baso # (Auto) 0.04 (0.00-0.20) K/uL Immature Gran # (Auto) 0.03 (0.01-0.20) K/uL Sodium 139 (136-145) mmol/L Potassium 4.0 (3.5-5.1) mmol/L Chloride 105 (98-107) mmol/L Carbon Dioxide 28 (21-32) mmol/L Anion Gap 6 (3-11) BUN 15 (6-23) mg/dl Creatinine 0.74 (0.6-1.2) mg/dl Est Cr Clr Drug Dosing 127.5 ml/min eGFR 114.36 BUN/Creatinine Ratio 20.3 H (10-20) Glucose 95 (70-99(Fasting)) mg/dl Calcium 9.9 (8.6-10.3) mg/dl Total Bilirubin 0.5 (0.2-1.0) mg/dl AST 17 (13-39) U/L ALT 11 (7-52) U/L Alkaline Phosphatase 72 (34-104) U/L Total Protein 7.4 (6.0-8.3) gm/dl Albumin 4.1 (3.4-5.0) gm/dl Globulin 3.3 (2.5-4.0) gm/dl Albumin/Globulin Ratio 1.2 (0.9-2) Lipase 27 (11-82) U/L HCG, Qual Negative (Negative) Urine Color Yellow Urine Appearance Clear (Clear) Urine pH 7.0 (4.5-7.5) Ur Specific [place] 1.020 (1.000-1.030) Urine Protein Negative (Negative) Urine Glucose (UA) Negative (Negative) Urine Ketones Negative (Negative) Urine Blood Negative (Negative) Urine Nitrite Negative (Negative) Urine Bilirubin Negative (Negative) Urine Urobilinogen Negative (Negative) Ur Leukocyte Esterase 1+ H (Negative) Urine WBC (Auto) 6-10 H (0-5) /hpf Urine RBC (Auto) 0-2 (0-2) /hpf U Hyaline Cast (Auto) 0-2 (0-2) /lpf U Epithel Cells (Auto) 6-10 H (0-2) /hpf Urine Bacteria (Auto) 1+ H (None Seen) Urine Comment Administered Medications Discontinued Medications Cefoxitin Sodium (Mefoxin) 2,000 mg in 60 mls @ 100 mls/hr IV NOW STA Stop: 02/04/25 00:05 Last Admin: 02/04/25 00:20 Dose: 100 mls/hr Documented By: [facility] Ioversol (Optiray 320 100ml) 93 ml IV ONCE ONE Stop: 02/03/25 20:53 Last Admin: 02/03/25 20:52 Dose: 93 ml Documented By: DRE Imaging Data Radiologist's Impression: Abdomen/Pelvis CT 02/03/25 20:39 Exam(s): CT ABDOMEN + PELVIS With Contrast IV Amt: 93 cc opti 320 EXAM: CT Abdomen and Pelvis With Intravenous Contrast CLINICAL HISTORY: Reason for exam: abd painl flnka. TECHNIQUE: Axial computed tomography images of the abdomen and pelvis with intravenous contrast. Automated exposure control was utilized for the study. A dose lowering technique was utilized adhering to the principles of ALARA. CONTRAST: Patient received 93 cc opti 320 of IV contrast COMPARISON: None. FINDINGS: Lung bases: Unremarkable. No mass. No consolidation. Enlarged/dense breasts, probably lactating breasts. ABDOMEN: Liver: Unremarkable. No mass. Gallbladder and bile ducts: Unremarkable. No calcified stones. No ductal dilation. Pancreas: Unremarkable. No mass. No ductal dilation. Spleen: Unremarkable. No splenomegaly. Adrenals: Unremarkable. No mass. Kidneys and ureters: Unremarkable. No solid mass. No hydronephrosis. Stomach and bowel: Unremarkable stomach and small bowel. Nondistended segment of the hepatic flexure is seen with wall thickening (series 300 image 38, series 3 image 180). Diffuse spasm of the descending colon and rectosigmoid. No obstruction. PELVIS: Appendix: There is a 11.5 mm distended appendix with thickened rosales that enhance, a small intraluminal appendicolith and periappendiceal changes seen, consistent with an acute appendicitis(series 300 image 48, series 3 image 231).. Bladder: Partially empty bladder with uniform 12.5 mm wall thickness. No mass. Reproductive: An anteverted uterus. A 3.2 cm left and 3.1 cm right low density adnexal/ovarian soft tissue structures. ABDOMEN and PELVIS: Intraperitoneal space: No free air. No significant fluid collection. Bones/joints: No acute fracture. No dislocation. Soft tissues: Unremarkable. Vasculature: Unremarkable. No abdominal aortic aneurysm. Lymph nodes: No significantly enlarged lymph nodes.. IMPRESSION: An acute appendicitis. Please correlate clinically. Bilateral adnexal/ovarian soft tissue structures. Partially empty urinary bladder with increased wall thickness. Recommend clinical correlation. . Electronically signed by: Sonu Llamas MD, DABR 02/03/25 22:44 PM Discharge Plan Visit Data Chief Complaint: Abdominal Pain Stated Complaint: STOMACH PAIN ED Provider: Aleksandr Paz Discharge Problem: Acute appendicitis, Abdominal pain Condition: Fair Forms Stand Alone Forms: [place] Prescriptions Prescriptions: No Action 28-800 mg-mcg Tablet 1 tab PO DAILY Referrals Referrals: [facility] [Primary Care Provider] - Discharge Problem: Acute appendicitis Qualifiers: Acute appendicitis type: other Qualified Code(s): K35.890 - Other acute appendicitis without perforation or gangrene Abdominal pain Qualifiers: Abdominal location: unspecified location Qualified Code(s): R10.9 - Unspecified abdominal pain
[2025-02-03] MEDS: OPTIRAY 320 100ml IV ONE (20:52)
[2025-02-03 21:27] LABS: Appearance Urine Clear (Clear); Bacteria Urine Automated 1+ (None Seen); Cast Urine Automated 0-2 /lpf (0-2); Glucose Urine UA Negative (Negative); RBC Urine Automated 0-2 /hpf (0-2)
--- NOTE | 2025-02-03 22:46 | CT Scan Report ---
Exam(s): CT ABDOMEN + PELVIS With Contrast IV Amt: 93 cc opti 320 EXAM: CT Abdomen and Pelvis With Intravenous Contrast CLINICAL HISTORY: Reason for exam: abd painl flnka. TECHNIQUE: Axial computed tomography images of the abdomen and pelvis with intravenous contrast. Automated exposure control was utilized for the study. A dose lowering technique was utilized adhering to the principles of ALARA. CONTRAST: Patient received 93 cc opti 320 of IV contrast COMPARISON: None. FINDINGS: Lung bases: Unremarkable. No mass. No consolidation. Enlarged/dense breasts, probably lactating breasts. ABDOMEN: Liver: Unremarkable. No mass. Gallbladder and bile ducts: Unremarkable. No calcified stones. No ductal dilation. Pancreas: Unremarkable. No mass. No ductal dilation. Spleen: Unremarkable. No splenomegaly. Adrenals: Unremarkable. No mass. Kidneys and ureters: Unremarkable. No solid mass. No hydronephrosis. Stomach and bowel: Unremarkable stomach and small bowel. Nondistended segment of the hepatic flexure is seen with wall thickening (series 300 image 38, series 3 image 180). Diffuse spasm of the descending colon and rectosigmoid. No obstruction. PELVIS: Appendix: There is a 11.5 mm distended appendix with thickened rosales that enhance, a small intraluminal appendicolith and periappendiceal changes seen, consistent with an acute appendicitis(series 300 image 48, series 3 image 231).. Bladder: Partially empty bladder with uniform 12.5 mm wall thickness. No mass. Reproductive: An anteverted uterus. A 3.2 cm left and 3.1 cm right low density adnexal/ovarian soft tissue structures. ABDOMEN and PELVIS: Intraperitoneal space: No free air. No significant fluid collection. Bones/joints: No acute fracture. No dislocation. Soft tissues: Unremarkable. Vasculature: Unremarkable. No abdominal aortic aneurysm. Lymph nodes: No significantly enlarged lymph nodes.. IMPRESSION: An acute appendicitis. Please correlate clinically. Bilateral adnexal/ovarian soft tissue structures. Partially empty urinary bladder with increased wall thickness. Recommend clinical correlation. . Electronically signed by: Sonu Llamas MD, DABR 02/03/25 22:44 PM
[2025-02-03] MEDS ORDERED: MoRPHine SULFATE 4 MG/ML 1 ML CARP\\VIAL IV PRN (23:08)
[2025-02-04] MEDS: cefOXitin 2,000 MG/60 ML BAG IV STA (00:20)
[2025-02-04] MEDS: MoRPHine SULFATE 2 MG/ML CARP IV PRN (01:18)
[2025-02-04] MEDS: ONDANSETRON INJ 2 MG/ML 2 ML VIAL IV PRN (01:18)
[2025-02-04] MEDS: LACTATED RINGER'S 1,000 ML IV SCH (01:22)
[2025-02-04] MEDS: PROMETHAZINE 25 MG/51 ML BAG IV PRN (03:03)
[2025-02-04] MEDS ORDERED: cefOXitin 2,000 MG in DEXTROSE 5 % MINI-B 50 ML IV SCH (06:00)
[2025-02-04] MEDS ORDERED: ONDANSETRON INJ 2 MG/ML 2 ML VIAL ONE (07:30)
[2025-02-04] MEDS ORDERED: LIDOCAINE 2% 2 ML VIAL/AMP(20MG/ML) INFIL ONE (07:30)
[2025-02-04] MEDS ORDERED: MIDAZOLAM HCL 1 MG/ML 2ML VIAL ONE (07:30)
[2025-02-04] MEDS ORDERED: ROCURONIUM BROMIDE 10 MG/ML 5 ML VIAL IV ONE (07:30)
[2025-02-04] MEDS ORDERED: PROPOFOL IV EMULSION 10 MG/ML 20 ML VIAL IV ONE (07:30)
[2025-02-04] MEDS ORDERED: DEXAMETHASONE SOD INJ 4 MG/ML VIAL ONE (07:30)
[2025-02-04] MEDS ORDERED: ACETAMINOPHEN 1000 MG/100 ML IV IV ONE (07:45)
--- NOTE | 2025-02-04 08:10 | Anesthesiology Consultation ---
Date of Service February 04, 2025 Assessment & Plan Chart Review Chart Review: Acceptable Risk for Surgery and Patient NOT seen in Pre Admission Testing Consults Requested none ASA [id number] Proposed Anesthesia Anesthesia Type: General History Surgery Operation Date: 02/04/25 08:00 Proposed Procedures p Laparoscopic Appendectomy - Jaleel Bass MD Height/Weight Height: 5 ft 6 in Weight: 85.6 kg Allergies Allergy/AdvReac Type Severity Reaction Status Date / Time No Known Allergies Allergy Verified 02/03/25 23:22 Medications Home Medications Medication Instructions Recorded Confirmed Last Taken vits no.133-ferrous 1 tab PO DAILY 05/29/24 02/03/25 02/03/25 fumarate 28 mg-folic acid 800 mcg tablet () Active Medications Generic Name Dose Route Start Last Admin Trade Name Freq PRN Reason Stop Dose Admin Lactated Ringer's 1,000 mls @ 80 mls/hr 02/03/25 23:15 02/04/25 01:22 Lr IV 02/06/25 23:14 80 mls/hr .[id number] SUPRIYA Administration Promethazine HCl 25 mg in 51 mls @ 204 mls/hr 02/04/25 02:46 02/04/25 03:22 Phenergan IV 03/06/25 02:45 Infused Q6H PRN Infusion N/V not relieved by Zofran Morphine Sulfate 2 mg 02/03/25 23:08 02/04/25 01:18 Morphine Sulfate 2 Mg/Ml Carp IV 02/17/25 23:07 2 mg Q3H PRN Administration Pain (1,2,3,4,5) & Pre PT Ondansetron HCl 4 mg 02/03/25 23:08 02/04/25 01:18 Ondansetron Inj 2 Mg/Ml 2 Ml Vial IV 03/05/25 23:07 4 mg Q6H PRN Administration Nausea Past Medical History Medical History Varicella vaccination Severe pre-eclampsia, Pre-eclampsia COVID-19 virus infection Cervicalgia Myofascial pain Cervical radicular pain Cervical radiculopathy History of COVID-19 07/06/2022 obese HTN Exercise / Class Metabolic Activity II 4-5 Yardwork/Stairs/Walk up hill Past Family History Family History Mother Colorectal cancer, Onset Age: 33 Denies family history of Ovarian cancer Breast cancer Past Surgical History Surgical History No history of previous surgery Past Anesthesia History No Hx of Anesthesia Complications and No Family Hx of Anesthesia Complications History of PONV No Hx of PONV and No Hx of Motion Sickness Social History Smoking Status: Never smoker Do You Dip or Chew Tobacco: No Hx Alcohol Use: No Hx Substance Use: No substance use type: does not use Physical Exam Vital Signs Last Vital Signs Temp 36.7 C 02/04/25 07:03 Pulse 81 02/04/25 07:03 Resp 16 02/04/25 07:03 BP 126/80 02/04/25 07:03 Pulse Ox 98 02/04/25 07:03 O2 Del Method Room Air 02/04/25 07:03 Testing Laboratory Results 02/03/25 20:00 02/03/25 20:00 Urine Color Yellow 02/03/25 20:37 Urine Appearance Clear (Clear) 02/03/25 20:37 Urine pH 7.0 (4.5-7.5) 02/03/25 20:37 Ur Specific [place] 1.020 (1.000-1.030) 02/03/25 20:37 Urine Protein Negative (Negative) 02/03/25 20:37 Urine Glucose (UA) Negative (Negative) 02/03/25 20:37 Urine Ketones Negative (Negative) 02/03/25 20:37 Urine Nitrite Negative (Negative) 02/03/25 20:37 Ur Leukocyte Esterase 1+ (Negative) H 02/03/25 20:37 Urine WBC (Auto) 6-10 /hpf (0-5) H 02/03/25 20:37 Urine RBC (Auto) 0-2 /hpf (0-2) 02/03/25 20:37 U Hyaline Cast (Auto) 0-2 /lpf (0-2) 02/03/25 20:37 U Epithel Cells (Auto) 6-10 /hpf (0-2) H 02/03/25 20:37 Urine Bacteria (Auto) 1+ (None Seen) H 02/03/25 20:37 Electrocardiogram Date: 11/16/24 Findings: + NSR @ (@ 96;) and + NSST changes Chest X-Ray Date: 11/16/24 Findings: + NAD
--- NOTE | 2025-02-04 08:21 | History & Physical Report ---
Date of Service February 04, 2025 Assessment & Plan (1) Acute appendicitis: Plan: IVF IV abx to OR for lap appendectomy Acute appendicitis type: other Qualified Code(s): K35.890 - Other acute appendicitis without perforation or gangrene Admission and Anticipated Discharge Date Admission Date: February 04, 2025 History of Present Illness Primary Care Provider: [facility] This is a 24YO admitted with abdominal pain which is right lower quadrant. She has nausea but no vomiting. Denies any headache or change in vision. No chest pain or shortness of breath. No dysuria, urgency, or frequency. No other exacerbating or remitting factor. A CT scan shows early appendicitis with appendicolith. Allergies Allergy/AdvReac Type Severity Reaction Status Date / Time No Known Allergies Allergy Verified 02/03/25 23:22 Home Medications Medication Instructions Recorded Confirmed Type vits no.133-ferrous 1 tab PO DAILY 05/29/24 02/03/25 History fumarate 28 mg-folic acid 800 mcg tablet () Past Med/Surg History Problem List Abdominal pain (Acute) Acute appendicitis (Acute) care following vaginal delivery hypertension Mild preeclampsia History of delivery, currently History of pre-eclampsia Hypomagnesemia (Acute) Medical History Varicella vaccination Severe pre-eclampsia, Pre-eclampsia COVID-19 virus infection Cervicalgia Myofascial pain Cervical radicular pain Cervical radiculopathy History of COVID-19 07/06/2022 Surgical History No history of previous surgery Family History Mother Colorectal cancer, Onset Age: 33 Denies family history of Ovarian cancer Breast cancer Social History Smoking Status: Never smoker Second Hand Exposure: No; Do You Dip or Chew Tobacco: No; Hx Alcohol Use: No Hx Substance Use: No Preferred Language: Samoan Communication Ability: Effective Visual Impairment: No Limitations Hearing Ability: Normal Professor Of Sociology Required: Voice Beliefs That Will Affect Care: Cultural Cultural Beliefs: Prefers female care givers marital status: marital status details: Darlene (26) [phone] Current Living Situation: Spouse Current Living Situation Comment: and daughter (2yo) current occupational status: student current occupation: student [employer] Other Information That Helps Us Care for You: No Feels Safe at Home: Yes Safety Concerns: Feels Safe At This Time Assistive Devices: None Review of Systems no fever and no chills no problem reported no problem reported no cough and no dyspnea no chest pain + abdominal pain and + nausea; no vomiting and no diarrhea/loose stools no dysuria no problem reported no localized weakness and no generalized weakness no behavioral changes no easy bleeding and no easy bruising Physical Exam Constitutional: WD/WN, vitals as above Eyes: no scleral abnormality Neck: trachea midline Respiratory: normal respiratory effort, lungs clear to auscultation Cardiovascular: RRR, no murmur, no edema Gastrointestinal (Abdomen): Inspection/Auscultation: abdomen normal to inspection and normal bowel sounds; abdomen not distended Percussion/Palpation: + abdomen tender, + guarding and abdomen soft; abdomen not rigid Musculoskeletal: Head/Neck/Chest: normocephalic and head atraumatic Skin: no rashes, warm and dry Results & Data Vital Signs (Past 12 Hours) Vital Signs Temp Pulse Pulse Pulse Resp BP BP 02/04/25 07:03 36.7 C 81 16 126/80 02/04/25 03:11 36.7 C 69 18 123/80 02/04/25 03:11 36.7 C 69 18 123/80 02/04/25 02:00 81 16 137/88 02/04/25 00:00 95 H 16 148/96 H 02/03/25 22:29 76 16 126/87 Pulse Ox O2 Del Method 02/04/25 07:03 98 Room Air 02/04/25 03:11 97 Room Air 02/04/25 03:11 97 Room Air 02/04/25 02:00 100 Room Air 02/04/25 00:00 100 Room Air 02/03/25 22:29 100 Room Air Diagnostic Findings Exam(s): CT ABDOMEN + PELVIS With Contrast IV Amt: 93 cc opti 320 EXAM: CT Abdomen and Pelvis With Intravenous Contrast CLINICAL HISTORY: Reason for exam: abd painl flnka. TECHNIQUE: Axial computed tomography images of the abdomen and pelvis with intravenous contrast. Automated exposure control was utilized for the study. A dose lowering technique was utilized adhering to the principles of ALARA. CONTRAST: Patient received 93 cc opti 320 of IV contrast COMPARISON: None. FINDINGS: Lung bases: Unremarkable. No mass. No consolidation. Enlarged/dense breasts, probably lactating breasts. ABDOMEN: Liver: Unremarkable. No mass. Gallbladder and bile ducts: Unremarkable. No calcified stones. No ductal dilation. Pancreas: Unremarkable. No mass. No ductal dilation. Spleen: Unremarkable. No splenomegaly. Adrenals: Unremarkable. No mass. Kidneys and ureters: Unremarkable. No solid mass. No hydronephrosis. Stomach and bowel: Unremarkable stomach and small bowel. Nondistended segment of the hepatic flexure is seen with wall thickening (series 300 image 38, series 3 image 180). Diffuse spasm of the descending colon and rectosigmoid. No obstruction. PELVIS: Appendix: There is a 11.5 mm distended appendix with thickened rosales that enhance, a small intraluminal appendicolith and periappendiceal changes seen, consistent with an acute appendicitis(series 300 image 48, series 3 image 231).. Bladder: Partially empty bladder with uniform 12.5 mm wall thickness. No mass. Reproductive: An anteverted uterus. A 3.2 cm left and 3.1 cm right low density adnexal/ovarian soft tissue structures. ABDOMEN and PELVIS: Intraperitoneal space: No free air. No significant fluid collection. Bones/joints: No acute fracture. No dislocation. Soft tissues: Unremarkable. Vasculature: Unremarkable. No abdominal aortic aneurysm. Lymph nodes: No significantly enlarged lymph nodes.. IMPRESSION: An acute appendicitis. Please correlate clinically. Bilateral adnexal/ovarian soft tissue structures. Partially empty urinary bladder with increased wall thickness. Recommend clinical correlation. Code Status & VTE Plan VTE Prophylaxis Plan VTE Prophylaxis will be ordered: Yes
[2025-02-04] MEDS ORDERED: ONDANSETRON INJ 2 MG/ML 2 ML VIAL IV PRN (09:23)
[2025-02-04] MEDS ORDERED: NALOXONE HCL 0.4 MG/1 ML VIAL/CARP IV PRN (09:23)
[2025-02-04] MEDS ORDERED: FLUMAZENIL 0.1 MG/1 ML 10 ML VIAL IV PRN (09:23)
[2025-02-04] MEDS ORDERED: ATROPINE SULFATE 0.1 MG/ML 10ML SYR IV PRN (09:23)
[2025-02-04] MEDS ORDERED: PROMETHAZINE HCL 6.25 MG in SODIUM CHLORIDE 0.9% 50 ML IV PRN (09:23)
[2025-02-04] MEDS ORDERED: HYDROmorphone INJ 1 MG/ML SYRINGE IV PRN (09:23)
[2025-02-04] MEDS ORDERED: ceFAZolin 330 MG/ML 1 GM VIAL ONE (09:48)
[2025-02-04] MEDS ORDERED: KETOROLAC 30 MG/ML VIAL ONE (10:02)
[2025-02-04] MEDS ORDERED: SUGAMMADEX SODIUM 200 MG/2 ML VIAL IV ONE (10:02)
[2025-02-04] MEDS: BUPIVACAINE/EPINEPHRINE 0.5% MPF 1:200,000 30 ML VIAL ONE (10:08)
--- NOTE | 2025-02-04 10:25 | Operative Report ---
Post Operative Report Pre & Post Diagnosis Operation Date: 02/04/25 08:00 Acute appendicitis with appendicolith I identified the patient and participated in the time-out.: Yes Procedure Operation Date: 02/04/25 08:00 Laparoscopic appendectomy Surgeon Jaleel Bass MD [employer] Supervisor none Estimated Blood Loss 7 Findings Consistent with Post-Op Diagnosis Acute appendicitis Specimens Appendix to pathology Drains none Anesthesia Type General Complications none Indications This is a 24-year-old female admitted to the ED last night with acute appendicitis. She is placed on fluids and IV antibiotics. She will be taken to the OR for laparoscopic appendectomy. She understands all the risks in detail. Description of Procedure The patient was taken to the OR and underwent excellent general anesthesia. Their abdomen was prepped and draped in normal sterile fashion. A transverse supraumbilical incision was made, towel clamps were used to create tension on the abdominal wall as an 11 port was placed in the supraumbilical position, inserted with visualization gently into the peritoneal cavity. Good pneumoperitoneum was achieved to about 15 mmHg pressure. Once this was done, a visualized 12 mm left lower quadrant port , a 5mm suprapubic port , and a 5mm right upper quadrant port were all placed in normal fashion. Patient was then placed in head down and rolled to the left. A good diagnostic lap was performed. They had obvious acute appendicitis. The cecum was grasped with an atraumatic grasper. A grasper was then was then used to grasp the tip of the appendix. The mesoappendix was splayed open and a harmonic scalpel was used to take down the mesoappendix. The base of the appendix was identified and an Endo MARY stapler was used to transect the appendix at its base. A endobag was then inserted through the left lower quadrant port and the appendix was placed into the bag, The bag was removed through the left lower quadrant port. The appendix was sent for pathologic evaluation. The pneumoperitoneum was re- established after the 12 mm port was replaced. Saline was then used to irrigate the abdomen. There was no active bleeding nor any other abnormalities noted in the abdomen. The patient was then placed back in neutral position, the ports were removed and the pneumoperitoneum decompressed. The 12mm port fascia was then closed using a 0 Vicryl. The skin was then anesthetized with 0.5% Marcaine with epinephrine local. Interrupted Vicryl is used to close the skin. Dermabond was used to reinforce the incisions. Sterile dressings were applied. The patient tolerated procedure without complications was sent to the postop recovery period of observation. They will be sent to the floor for the rest of their care. I attest to the content of the Intraoperative Record and any orders documented therein. Any exceptions are noted below.
--- NOTE | 2025-02-04 11:02 | Anesthesiology Progress Note ---
Date of Service February 04, 2025 Anesthesia Post Procedure Vital Signs Vital Signs: Temp Pulse Pulse Pulse Resp BP BP 02/04/25 10:55 84 15 118/67 02/04/25 10:45 92 H 17 110/61 02/04/25 10:35 94 H 19 111/63 02/04/25 10:28 36.0 C L 103 H 19 111/65 02/04/25 08:39 37.2 C 92 H 16 02/04/25 07:03 36.7 C 81 16 02/04/25 03:11 36.7 C 69 18 02/04/25 03:11 36.7 C 69 18 02/04/25 02:00 81 16 137/88 02/04/25 00:00 95 H 16 02/03/25 22:29 76 16 02/03/25 19:50 36.8 C 74 17 130/86 BP Pulse Ox O2 Del Method O2 Flow Rate 02/04/25 10:55 95 Room Air 02/04/25 10:45 99 Room Air 02/04/25 10:35 100 Oxymask 5 02/04/25 10:28 100 Oxymask 5 02/04/25 08:39 118/73 98 Room Air 02/04/25 07:03 126/80 98 Room Air 02/04/25 03:11 123/80 97 Room Air 02/04/25 03:11 123/80 97 Room Air 02/04/25 02:00 100 Room Air 02/04/25 00:00 148/96 H 100 Room Air 02/03/25 22:29 126/87 100 Room Air 02/03/25 19:50 98 Room Air Pain Intensity Left Upper Abdomen: Pain Intensity: 6 Transfer of Care Handoff Completed per policy Notes Mental Status: alert / awake / arousable Patient Amnestic to Procedure: Yes Nausea / Vomiting: adequately controlled Pain: adequately controlled Airway Patency, RR, SpO2: stable & adequate BP & HR: stable & adequate Hydration State: stable & adequate Anesthetic Complications: no major complications apparent
[2025-02-04] MEDS ORDERED: IBUPROFEN 200 MG TAB PO PRN (11:19)
[2025-02-04] MEDS: KETOROLAC 30 MG/ML VIAL IV ONE (16:22)
[2025-02-04] MEDS: ACETAMINOPHEN 325 MG TAB PO PRN (18:11)
[2025-02-05] MEDS: IBUPROFEN 600 MG TAB PO PRN (01:56)
[2025-02-05] MEDS: LACTATED RINGER'S 1,000 ML IV SCH (02:49)
--- NOTE | 2025-02-05 10:10 | Surgery Progress Note ---
Date of Service February 05, 2025 Assessment & Plan (1) Acute appendicitis: Plan: POD # 1 s/p lap appy, uncomplicated avss postop pain moderate, only taking Tylenol and Ibuprofen due to breast pumping, does not want to take narcotics incisions c/d/i (2) Postoperative urinary retention: Plan: straight cath at 4 am for 700 cc bladder scan as needed required straight cath x 2 after vaginal delivery 2 months ago encourage ambulation heating pad/warm compresses (3) Numbness and tingling of upper and lower extremities of both sides: Plan: numbness of arms and legs when standing but not when sitting history of cervical and lumbar pinched nerves Plan: pain management as needed alternate Tylenol and Ibuprofen bladder scan as needed straight cath as needed will consult hospitalist for bilateral upper extremity and lower extremity numbness with standing? unsure etiology , hx of pinched nerves, could have been aggrevated with lying on operating bed?? Discussed with Dr. Bass who agrees with above Admission and Anticipated Discharge Date Admission Date: February 03, 2025 Subjective still having same amount of abdominal pain as yesteday, Tylenol and Ibuprofen not helping but doesn't want to take anything else due to /currently pumping. states she was able to eat some toast this morning no n,v required straight cath at 4 am for 700, has not urinated on her own and does not feel like she needs to urinate sensation of flushing, feeling hot, sweating when standing up, also having some numbness in her arms and legs when standing, hx of cervical and low back pinched nerve. Physical Exam Constitutional: WD/WN, vitals as above cooperative and comfortable; no acute distress and not ill appearing Respiratory: normal respiratory effort; no respiratory distress, no labored breathing and no retractions Gastrointestinal (Abdomen): Inspection/Auscultation: abdomen normal to inspection and + abdominal surgical incision (c/d/i with dermabond); abdomen not distended Percussion/Palpation: + abdomen tender (at incision sites, generalized) and abdomen soft; no guarding, abdomen not rigid and abdomen not firm Skin: no rashes, warm and dry Psychiatric: Orientation: alert and oriented x 3 Results & Data Vital Signs (Past 12 Hours) Vital Signs Temp Pulse Resp BP Pulse Ox O2 Del Method 02/05/25 06:55 36.4 C L 76 16 121/77 98 Room Air 02/05/25 04:35 36.5 C 73 16 124/80 98 Room Air 02/05/25 01:28 100 H 130/85 02/05/25 01:01 36.5 C 93 H 16 103/67 99 Room Air (1) Acute appendicitis Acute appendicitis type: other Qualified Code(s): K35.890 - Other acute appendicitis without perforation or gangrene
[2025-02-05] MEDS: FAMOTIDINE 20MG IV PUSH 20 MG/5 ML SYR IV STA (12:06)
--- NOTE | 2025-02-05 12:20 | Hospitalist Consultation ---
Date of Consultation February 05, 2025 Assessment & Plan (1) Acute appendicitis: (2) Chest pain: (3) Numbness and tingling of upper and lower extremities of both sides: (4) Postoperative urinary retention: (5) Abdominal pain: Plan #Acute Appendicitis #Chest pain #Numbness/tingling of legs with weakness #Urinary Retention post-operatively POD # 1, post-op orders/bowel regimen/pain control per primary service Hospitalist service consulted for weakness of legs w/ ambulation, now also having reports of chest/epigastric pain and radiation to shoulder. --> Appears more epigastric/reflux in nature. EKG obtained and reviewed -NSR 60s, no significant ST/T wave abn. No leg edema or hx DVT, no hypoxia or pleuritic pain to suggest PE but w/ recent is likely in hypercoagulable state. CXR ordered as well as labs w/ CBC, BMP, mag given low mag in past and to ensure no acute blood loss anemia or renal dysfunction or electrolyte abn contributing to symptoms. Review prior meds provided w/ NSAIDs for pain control - toradol 30mg, ibuprofen x 3 doses and could have some CP/epigastric pain from underlying reflux. Pepcid IVP x 1 ordered, Would avoid NSAIDs and discussed could use oxycodone and pump/dump w/ current breast feeding Do also note urinary retention following surgery (occurred post- as well) and will obtain repeat UA as well for evaluation for contribution to LE symptoms Will follow up response to pepcid. Patient is hopeful for dc home. If symptoms resolve w/ pepcid and possible electrolyte replacement pending labs could consider dc but otherwise will follow along. Does not appear to have had any spinal anesthesia and rather had general anesthesia, concerns for TM less likely. Hx pinched nerves -- could consider lumbar imaging pending repsonse to above. Please call hospitalist service with any questions/concerns. History of Present Illness Reason for Consultation: numbness in arms and legs with standing POD # 1 Requesting Physician: Dr Bass Attending Physician: Jaleel Bass MD History of Present Illness 24yo female presented for acute appendicitis s/p appendectomy with Dr Bass. Recent vaginal delivery on November 26 with reports of pain since that time. Also reported back pain since the past week with nausea but no vomiting. Doing well post-operatively but developed numbness/tingling in her legs and arms with weakness in her arms POD#1, reports worse with standing. Reports decent PO intake, passing gas. Reports chest pain now since administration of medications overnight into this morning, epigastric/central chest pain with radiation to her left arm. Denies recent leg swelling or history of clot. Tolerated aspirin alright while for pre-eclampsia. She reports increased leg weakness bilaterally when standing and ambulating. Prior back pain since of her child but did not have leg symptoms. No urinary burning but did have some urinary retention this morning req cath x 2 - had to be done post-operatively w/ her delivery as well and then was able to urinate following. Per nursing did ok getting up but then was dizzy with walking. Orthostatic VS obtained with such and not impressive. EKG obtained and NSR w/ rates in 60s but is in low 100s during encounter, denied palpitations. Discussed possible reflux/gastritis from NSAIDs w/ ibuprofen and would avoid NSAIDs, consider oxy and pump/dump prior to . Does have some shortness of breath with ambulation but denies increased pain/pleuritic pain with taking deep breath. Nursing bringing in pepcid currently and will monitor response to such. Labs being drawn w/ prior hx low mag and could be contributing to leg symptoms and will order replacement as able. Patient is hopeful for dc this afternoon. Allergies Allergy/AdvReac Type Severity Reaction Status Date / Time No Known Allergies Allergy Verified 02/03/25 23:22 Home Medications Medication Instructions Recorded Confirmed Type vits no.[id number]-ferrous 1 tab PO DAILY 05/29/24 02/03/25 History fumarate 28 mg-folic acid 800 mcg tablet () Patient History Medical History Varicella vaccination Severe pre-eclampsia, Pre-eclampsia COVID-19 virus infection Cervicalgia Myofascial pain Cervical radicular pain Cervical radiculopathy History of COVID-19 07/06/2022 Surgical History No history of previous surgery Family History Mother Colorectal cancer, Onset Age: 33 Denies family history of Ovarian cancer Breast cancer Social History Smoking Status: Never smoker Second Hand Exposure: No; Do You Dip or Chew Tobacco: No; Hx Alcohol Use: No Hx Substance Use: No Preferred Language: Citizen Of [place] Communication Ability: Effective Visual Impairment: No Limitations Hearing Ability: Normal Fats And Oils Loader Required: Voice Beliefs That Will Affect Care: Cultural Cultural Beliefs: Prefers female care givers marital status: marital status details: Darlene (26) [phone] Current Living Situation: Spouse Current Living Situation Comment: and daughter (2yo) current occupational status: student current occupation: student [employer] Other Information That Helps Us Care for You: No Feels Safe at Home: Yes Safety Concerns: Feels Safe At This Time Assistive Devices: None Review of Systems Review of Systems: All systems reviewed & are unremarkable except as noted in HPI & below Physical Exam Physical Exam: General: 24yo female laying in bed, /children in room, reporting chest pain/epigastric, NAD HEENT: head atraumtic, normocephalic mm slightly dry, trachea midline Resp: even/unlabored, no wheezing/rales, on room air CV: regular, slightly tachycardic, no significant m/r/g, no pitting edema GI: +BS, soft/incisions appropriately tender, no guarding/rebound ; no [place] MSK/Neuro: weakness b/l LE 3-4/5 but nonfocal, sensation intact, UE strength equal/full strength, no calf edema/pulses present Psych: AOx3, cooperative with exam Results & Data Results & Data Vital Signs (Past 12 Hours) Vital Signs Temp Pulse Resp BP Pulse Ox O2 Del Method 02/05/25 11:52 37.2 C 104 H 18 142/87 H 100 Room Air 02/05/25 10:42 37.2 C 81 18 138/87 100 Room Air 02/05/25 06:55 36.4 C L 76 16 121/77 98 Room Air 02/05/25 04:35 36.5 C 73 16 124/80 98 Room Air 02/05/25 01:28 100 H 130/85 02/05/25 01:01 36.5 C 93 H 16 103/67 99 Room Air Laboratory Results 02/05/25 Range/Units 12:12 WBC 7.31 (4.8-10.8) K/ul RBC 4.00 L (4.20-5.40) M/uL Hgb 11.1 L (12.0-16.0) g/dl Hct 34.8 L (37.0-47.0) % MCV 87.0 (80.0-100.0) fL MCH 27.8 (25.0-34.0) pg MCHC 31.9 L (32.0-36.0) g/dL RDW Std Deviation 48.1 H (36.4-46.3) fL RDW Coeff of Jasmyne 15.0 H (11.5-14.5) % Plt Count 281 (130-400) K/uL MPV 8.6 L (9.4-12.4) fL Sodium Pending Potassium Pending Chloride Pending Carbon Dioxide Pending Anion Gap Pending BUN Pending Creatinine Pending Est Cr Clr Drug Dosing Pending eGFR Pending BUN/Creatinine Ratio Pending Glucose Pending Calcium Pending Magnesium Pending PG Care Time/CCT Total # of Minutes Spent Total Time Spent with Patient: Total time spent is greater than 50% in coordination of care (as documented) at patient's floor/unit and/or counseling patient: Coding Level of Care Code 57515 IN/OBS CONSULT LVL 3,45M Diagnoses Acute appendicitis K35.890 Acute appendicitis type: other Chest pain R07.9 Numbness and tingling of upper and lower extremities of both sides R20.0; R20.2 Postoperative urinary retention N99.89; R33.8 Abdominal pain R10.9 Abdominal location: unspecified location (1) Acute appendicitis Acute appendicitis type: other Qualified Code(s): K35.890 - Other acute appendicitis without perforation or gangrene (5) Abdominal pain Abdominal location: unspecified location Qualified Code(s): R10.9 - Unspecified abdominal pain
[2025-02-05 12:24] LABS: Hematocrit (blood only) 34.8 % (37.0-47.0); Hemoglobin 11.1 g/dl (12.0-16.0); Mean Corpuscular Hemoglobin 27.8 pg (25.0-34.0); Mean Corpuscular Volume 87.0 fL (80.0-100.0); Platelet Count 281 K/uL (130-400); RDW Standard Deviation 48.1 fL (36.4-46.3); Red Blood Count 4.00 M/uL (4.20-5.40); White Blood Count 7.31 K/ul (4.8-10.8)
--- NOTE | 2025-02-05 12:29 | XRay Report ---
SINGLE VIEW CHEST CLINICAL HISTORY: Chest pain FINDINGS: An AP, portable, upright chest radiograph is compared to chest x-ray and chest CT dated 10/29. The cardiomediastinal silhouette is unremarkable. Mild elevation of the right hemidiaphragm i s unchanged. The lungs and pleural spaces are clear. No pneumothorax is seen. The bony thorax is augustine sly intact. IMPRESSION: No active disease in the chest. ACT 112: Negative or not required by law. Electronically signed by: Edward Wagoner M.D. 02/05/2025 12:27 PM
[2025-02-05 12:42] LABS: Anion Gap 12.0 (3-11); Blood Urea Nitrogen 19.0 mg/dl (6-23); Calcium 8.7 mg/dl (8.6-10.3); Carbon Dioxide 22.0 mmol/L (21-32); Chloride 106.0 mmol/L (98-107); Creatinine Clr Calc Pharmacy 128.7 ml/min; Glucose 74.0 mg/dl (70-99(Fasting)); Magnesium 1.6 mg/dl (1.7-2.4); Potassium 3.5 mmol/L (3.5-5.1); Sodium 140.0 mmol/L (136-145)
[2025-02-05] MEDS ORDERED: IBUPROFEN 200 MG TAB PO PRN ×2 (13:09→13:16)
[2025-02-05] MEDS: MAGNESIUM SULFATE / D5W 1 GM/100 ML BAG IV SCH (13:50)
[2025-02-05] MEDS: ACETAMINOPHEN 500 MG TAB PO SCH (13:57)
[2025-02-05 17:01] LABS: Appearance Urine Clear (Clear); Bacteria Urine Automated None Seen (None Seen); Cast Urine Automated 0-2 /lpf (0-2); Epithelial Cell Urine Auto 0-2 /hpf (0-2); Glucose Urine UA Negative (Negative); RBC Urine Automated 0-2 /hpf (0-2); WBC Urine Automated 0-5 /hpf (0-5)
[2025-02-05] MEDS: D5W AND LACTATED RINGERS 1,000 ML IV SCH (18:23)
--- NOTE | 2025-02-05 18:42 | Electrocardiogram Report ---
Test Reason : Blood Pressure : */* mmHG Vent. Rate : 87 BPM Atrial Rate : 87 BPM P-R Int : 166 ms QRS Dur : 86 ms QT Int : 370 ms P-R-T Axes : 59 44 31 degrees QTcB Int : 445 ms Normal sinus rhythm Normal ECG When compared with ECG of 16-Nov-2024 16:59, Nonspecific T wave abnormality no longer evident in Anterolateral leads Confirmed by Nir Jordan ([id number]) on 02/05/2025 6:42:10 PM Referred By: REFERRED SELF Confirmed By: Nir Jordan
[2025-02-05 19:48] VITALS: RESP 16
[2025-02-05] MEDS: FAMOTIDINE 20 MG TAB PO SCH (20:59)
--- NOTE | 2025-02-06 09:16 | Surgery Progress Note ---
Date of Service February 06, 2025 Assessment & Plan (1) Acute appendicitis: Plan: POD #1 s/p lap appy, uncomplicated avss postop pain better controlled today, took Oxycodone this am incisions c/d/i (2) Postoperative urinary retention: Plan: straight cath at 4 am for 700 cc bladder scan as needed required straight cath x 2 after vaginal delivery 2 months ago encourage ambulation heating pad/warm compresses hospitalist ordering flomax may require catheter for discharge, discussed with patient 2 week follow-up (3) Numbness and tingling of upper and lower extremities of both sides: Plan: numbness of arms and legs when standing but not when sitting history of cervical and lumbar pinched nerves Plan: pain management as needed alternate Tylenol and Ibuprofen, oxycodone as needed bladder scan as needed straight cath as needed Discussed with Dr. Bass who agrees with above Admission and Anticipated Discharge Date Admission Date: February 03, 2025 Subjective feeling better, pain is better controlled, took oxycodone this am no n,v tolerated more food this am still has not been able to urinate on own. still requiring straight cath last 4:30 this am and does not have urge to urinate able to walk more in hallway last night without diffuse flushing, still having some numbness in hands and legs when standing. Physical Exam Constitutional: WD/WN, vitals as above cooperative and comfortable; no acute distress and not ill appearing Respiratory: normal respiratory effort; no respiratory distress, no labored breathing and no retractions Gastrointestinal (Abdomen): Inspection/Auscultation: abdomen normal to inspection and + abdominal surgical incision (c/d/i with dermabond); abdomen not distended Percussion/Palpation: + abdomen tender (at incision sites) and abdomen soft; no guarding, abdomen not rigid and abdomen not firm Skin: no rashes, warm and dry Psychiatric: Orientation: alert and oriented x 3 Results & Data Vital Signs (Past 12 Hours) Vital Signs Temp Pulse Resp BP Pulse Ox O2 Del Method 02/06/25 07:49 37.0 C 82 16 138/85 100 Room Air Laboratory Results 02/06/25 02/05/25 02/05/25 Range/Units 09:12 16:30 12:12 WBC 7.31 (4.8-10.8) K/ul RBC 4.00 L (4.20-5.40) M/uL Hgb 11.1 L (12.0-16.0) g/dl Hct 34.8 L (37.0-47.0) % MCV 87.0 (80.0-100.0) fL MCH 27.8 (25.0-34.0) pg MCHC 31.9 L (32.0-36.0) g/dL RDW Std Deviation 48.1 H (36.4-46.3) fL RDW Coeff of Jasmyne 15.0 H (11.5-14.5) % Plt Count 281 (130-400) K/uL MPV 8.6 L (9.4-12.4) fL Sodium 140 (136-145) mmol/L Potassium 3.5 (3.5-5.1) mmol/L Chloride 106 (98-107) mmol/L Carbon Dioxide 22 (21-32) mmol/L Anion Gap 12 H (3-11) BUN 19 (6-23) mg/dl Creatinine 0.73 (0.6-1.2) mg/dl Est Cr Clr Drug Dosing 128.7 ml/min eGFR 116.24 BUN/Creatinine Ratio 26.0 H (10-20) Glucose 74 (70-99(Fasting)) mg/dl Calcium 8.7 (8.6-10.3) mg/dl Magnesium 1.5 L 1.6 L (1.7-2.4) mg/dl Urine Color Yellow Urine Appearance Clear (Clear) Urine pH 6.0 (4.5-7.5) Ur Specific [place] 1.030 (1.000-1.030) Urine Protein Negative (Negative) Urine Glucose (UA) Negative (Negative) Urine Ketones 3+ H (Negative) Urine Blood Negative (Negative) Urine Nitrite Negative (Negative) Urine Bilirubin Negative (Negative) Urine Urobilinogen Negative (Negative) Ur Leukocyte Esterase Trace H (Negative) Urine WBC (Auto) 0-5 (0-5) /hpf Urine RBC (Auto) 0-2 (0-2) /hpf U Hyaline Cast (Auto) 0-2 (0-2) /lpf U Epithel Cells (Auto) 0-2 (0-2) /hpf Urine Bacteria (Auto) None Seen (None Seen) Urine Comment (1) Acute appendicitis Acute appendicitis type: other Qualified Code(s): K35.890 - Other acute appendicitis without perforation or gangrene
--- NOTE | 2025-02-06 11:43 | Hospitalist Progress Note ---
Date of Service February 06, 2025 Assessment & Plan (1) Acute appendicitis: (2) Chest pain: (3) Numbness and tingling of upper and lower extremities of both sides: (4) Postoperative urinary retention: (5) Abdominal pain: Plan #Acute Appendicitis #Chest pain #Numbness/tingling of legs with weakness #Urinary Retention post-operatively POD # 2, post-op orders/bowel regimen/pain control per primary service Hospitalist service consulted for weakness of legs w/ ambulation, now also having reports of chest/epigastric pain and radiation to shoulder (this has resolved)--potential etiology could've been air induced into the peritoneal cavity during laparoscopic procedure. --> Appears more epigastric/reflux in nature. EKG obtained and reviewed -NSR 60s, no significant ST/T wave abn. No leg edema or hx DVT, no hypoxia or pleuritic pain to suggest PE but w/ recent is likely in hypercoagulable state. Magnesium 1.6 --> replacement ordered 1g Mag sulfate on 02/05, repeat on 02/06=1.5, additional replacement ordered Suspect some of her symptoms could be residual anesthesia effect Review prior meds provided w/ NSAIDs for pain control - toradol 30mg, ibuprofen x 3 doses and could have some CP/epigastric pain from underlying reflux. Pepcid IVP x 1 ordered, Would avoid NSAIDs and discussed could use oxycodone but this can contribute to urinary retention. Pt is also concerned about taking this while , but she was provided reassurance that she can take sparingly and continue to breastfeed. Does not need to pump and dump. Do also note urinary retention following surgery (occurred post- as well). Straight cathed, obtained UA which is essentially unremarkable. No culture ordered. Afebrile. Dose of Flomax 0.4mg POx1 given on 02/06. Hopefully can spontaneously void, if not, will need a catheter with urology follow up No further recommendations at this time. She will need to be able to void on her own prior to d/c or she will require a catheter with urology/pcp follow up. Surgery is monitoring this issue. Given dose of Flomax, which can be continued on discharge. If she has persistent numbness/tingling, can discuss with pcp. No need for inpt MRI or additional diagnostic w/u. Consider Vit b12/folate as outpatient. Plan d/w Dr. Grossman. Thank you for allowing us to participate in the care of your patient. Please call with questions. Admission and Anticipated Discharge Date Admission Date: February 03, 2025 Supervising Physician Co-Signing Physician Notes The patient was not seen by me. The chart was reviewed. Case discussed with LETICIA Reddy. Agree with assessment and plan Subjective Samantha was seen today on rounds. She reports that she is having difficulty voiding on her own. Had to be straight cathed around 4am. She otherwise reports that her pain is manageable but did take an oxycodone this AM. She has had some c/o numbness in her hands and flushing when she gets up. No focal weakness, speech difficulties, headache, or blurred vision. She is afebrile and otherwise hemodynamically stable. Review of Systems Review of Systems: All systems reviewed and are unremarkable except as noted in HPI and below. Denies fever, chills, fatigue, headache, nasal congestion, sore throat, cough, chest pain, shortness of breath, palpitations, orthopnea, PND, n/v/d, constipation, dysuria, hematuria, frequency, back pain, joint pain or swelling, easy bruising or bleeding, skin lesions or rashes. Physical Exam Physical Exam: GENERAL: 24 yo young healthy F. A&Ox4. No distress. LUNGS: Clear to auscultation bilaterally. No W/R/R. CARDIOVASCULAR: Regular rate and rhythm. No M/G/R. No JVD. ABDOMEN: lap incisions noted on abd. No bleeding, redness or drainage. Belly is soft, mild TTP in middle and lower portion of abd. Non distended. Bs normoactive x 4 quad. EXTREMITIES: No edema. Non-tender. Peripheral pulses +2/4. NEUROLOGIC: No focal neurological deficits. CN II-XII grossly intact. PSYCHIATRIC: Cooperative. Appropriate mood and affect. SKIN: Warm, dry, intact. No rashes or lesions. Results & Data Results & Data Vital Signs (Past 12 Hours) Vital Signs Temp Pulse Resp BP Pulse Ox O2 Del Method 02/06/25 07:49 37.0 C 82 16 138/85 100 Room Air Laboratory Results mag 1.5 UA unremarkable PG Care Time/CCT Total # of Minutes Spent Total Time Spent with Patient: Total time spent is greater than 50% in coordination of care (as documented) at patient's floor/unit and/or counseling patient: 36 minutes Coding Level of Care Code 78848 SUB INP/OBS CARE 2/35MIN Diagnoses Acute appendicitis K35.890 Acute appendicitis type: other Chest pain R07.9 Numbness and tingling of upper and lower extremities of both sides R20.0; R20.2 Postoperative urinary retention N99.89; R33.8 Abdominal pain R10.9 Abdominal location: unspecified location (1) Acute appendicitis Acute appendicitis type: other Qualified Code(s): K35.890 - Other acute appendicitis without perforation or gangrene (5) Abdominal pain Abdominal location: unspecified location Qualified Code(s): R10.9 - Unspecified abdominal pain
[2025-02-06] MEDS: TAMSULOSIN HCL 0.4 MG CAP PO ONE (12:10)
[2025-02-06] MEDS: MAGNESIUM SULFATE / D5W 1 GM/100 ML BAG IV SCH (12:55)
[2025-02-06 15:34] VITALS: TEMP 99.7; O2SAT 99
[2025-02-06 16:21] VITALS: BP 148/91; PULSE 84
== END 2025-02-06 17:46 | disposition home or self-care (01) ==
LOC: ED 19:44 → 3W 19:44 → 3E 02-04 18:50